=== PATIENT | female | born 1970 | race Caucasian/White ===

== ENCOUNTER 2021-04-14 08:57 | Day surgery (SDC) | payer BC ==
[2021-04-13 09:52] VITALS: BMI 47.4
[~2021-04-14 08:57] MED LIST: LACTATED RINGERS 1,000 ML IV SCH
[2021-04-14 09:36] VITALS: TEMP 96.8
[2021-04-14] MEDS ORDERED: LIDOCAINE 1% (10MG/ML) FOR IV START INTRADERMA ONE (09:52)
[2021-04-14] MEDS ORDERED: LIDOCAINE 1% INJ 10MG/ML (20 ML MDV) ONE (10:12)
[2021-04-14] MEDS ORDERED: PROPOFOL 10 MG/ML 20 ML VIAL IV ONE (10:12)
--- NOTE | 2021-04-14 10:16 | P.GSHP ---
History of Present Illness H&P Date: 04/14/21 Chief Complaint: Epigastric pain This a 50-year-old female who has complaints of epigastric pain. Patient describes the pain he feeling of a ball in her epigastric area. Past Medical History Past Medical History: Asthma, Hyperlipidemia, Osteoarthritis (OA), Thyroid Disorder Additional Past Medical History / Comment(s): "Burning sensation below sternum that radiates out, stomach feels like it's backed up and overfull". Hx Covid 03/22/21. Migraines. "Genetic Arrythmia, had work up, no concerns." History of Any Multi-Drug Resistant Organisms: None Reported Past Surgical History: Cholecystectomy, Tubal Ligation Past Anesthesia/Blood Transfusion Reactions: Previous Problems w/ Anesthesia Additional Past Anesthesia/Blood Transfusion Reaction / Comment(s): Slow to wake up. Past Psychological History: No Psychological Hx Reported Smoking Status: Former smoker Past Alcohol Use History: None Reported Additional Past Alcohol Use History / Comment(s): Quit smoking 16 yrs ago. Past Drug Use History: None Reported - Past Family History Father Family Medical History: Cancer, Pulmonary Embolus Mother Family Medical History: Cancer Medications and Allergies Home Medications Medication Instructions Recorded Confirmed Type Albuterol Inhaler [Ventolin Hfa 1 - 2 puff INHALATION DIRECTED 04/13/21 04/13/21 History Inhaler] PRN Gabapentin [Neurontin] 100 mg PO TID PRN 04/13/21 04/13/21 History Levothyroxine Sodium [Synthroid] 50 mcg PO QAM 04/13/21 04/13/21 History Pantoprazole [Protonix] 40 mg PO QAM 04/13/21 04/13/21 History Allergies Allergy/AdvReac Type Severity Reaction Status Date / Time Penicillins Allergy Dyspnea Verified 04/13/21 09:35 prednisone Allergy Rash/Hives Verified 04/13/21 09:36 Surgical - Exam Vital Signs Temp Pulse Resp BP Pulse Ox 96.8 F L 81 20 126/71 98 04/14/21 09:34 04/14/21 09:34 04/14/21 09:34 04/14/21 09:34 04/14/21 09:34 - General well developed, well nourished, no distress - Eyes PERRL - ENT normal pinna - Neck no masses - Respiratory normal expansion - Cardiovascular Rhythm: regular - Abdomen Abdomen: soft, non tender Assessment and Plan Assessment: Epigastric pain. We'll perform EGD to evaluate for possible gastritis.
--- NOTE | 2021-04-14 10:24 | P.OP ---
Date of Procedure: 04/14/21 Preoperative Diagnosis: Epigastric pain Postoperative Diagnosis: Mild antral gastritis Procedure(s) Performed: EGD Anesthesia: MAC Surgeon: Moody Guevara Pathology: other (Antrum) Condition: stable Disposition: PACU Description of Procedure: The patient's placed on the endoscopy table in the lateral position. She received IV sedation. The gastroscope placed oropharynx passed in the esophagus and stomach. Scope was placed through the pylorus. The first and second portion of the duodenum appeared normal. Scope summer back the antrum this. Mildly inflamed. Biopsies performed. The scope was then retroflexed and the remainder the stomach appeared normal. There was no significant hiatal hernia. The GE junction was at 40 cms. The distal esophagus appeared normal. The proximal esophagus appeared normal. Scope withdrawn for patient.
[2021-04-14 10:32] VITALS: RESP 16
[2021-04-14 10:57] VITALS: BP 120/73; PULSE 78
== END 2021-04-14 11:30 | disposition home or self-care (01) ==
LOC: ORWHC2ENDO 08:57
PROVIDERS: ATTEND Surgery
DX: K29.70 Gastritis, unspecified, without bleeding (principal); K44.9 Diaphragmatic hernia without obstruction or gangrene; J45.909 Unspecified asthma, uncomplicated; E78.5 Hyperlipidemia, unspecified; M19.90 Unspecified osteoarthritis, unspecified site; E07.9 Disorder of thyroid, unspecified; E66.01 Morbid (severe) obesity due to excess calories; Z68.42 Body mass index [BMI] 45.0-49.9, adult; G43.909 Migraine, unspecified, not intractable, without status migrainosus; Z90.49 Acquired absence of other specified parts of digestive tract; Z98.51 Tubal ligation status; Z87.891 Personal history of nicotine dependence; Z82.49 Family history of ischemic heart disease and other diseases of the circulatory system; Z80.9 Family history of malignant neoplasm, unspecified; Z79.890 Hormone replacement therapy; Z79.899 Other long term (current) drug therapy; Z88.0 Allergy status to penicillin; Z88.8 Allergy status to other drugs, medicaments and biological substances
CPT/HCPCS: 81025; 88305; 43239; J2001; J2704

== ENCOUNTER → 2021-05-09 | Outpatient (CLI) | payer BC ==
--- NOTE | 2021-05-09 22:03 | CT ---
"EXAMINATION TYPE: CT abdomen pelvis w con DATE OF EXAM: 05/09/2021 COMPARISON: No previous CT scan is available for comparison. HISTORY: Epigastric pain CT DLP: 2150.50 mGycm Automated exposure control for dose reduction was used. TECHNIQUE: Helical acquisition of images was performed from the lung bases through the pelvis. CONTRAST: Performed with Oral Contrast and with IV Contrast, patient injected with 100 mL of Isovue 300. FINDINGS: LUNG BASES: 2 mm nodule is seen at the posterior aspect of the right lung base (image 20, series 4), nonspecific. Further dedicated CT scan of the chest can be considered. LIVER/GB: Enlarged liver measuring 19.9 cm. Multiple variable sized hepatic focal lesions are identif ied. For example, a right hepatic lobe lateral lesion measures 3.8 x 5.5 cm. A central segment 8 lesi on measures 2.5 x 2.7 cm. A segment 4B lesion measures 3.3 x 4.2 cm. An inferior segment 5 lesion cecil sures 15 mm. They are suspicious for metastatic lesions. Previous cholecystectomy. Patent portal vein . PANCREAS: No significant abnormality is seen. SPLEEN: No significant abnormality is seen. ADRENALS: No significant abnormality is seen. KIDNEYS: No significant abnormality is seen. FREE AIR: No free air is visualized. RETROPERITONEAL ADENOPATHY: None visualized REPRODUCTIVE ORGANS: No gross uterine or adnexal mass yet suboptimally assessed. URINARY BLADDER: No significant abnormality is seen. PELVIC ADENOPATHY: None visualized. OSSEOUS STRUCTURES: Degenerative changes of the lower thoracic and L5-S1 level. No gross aggressive bone lesion. BOWEL: Unremarkable stomach, duodenum and small bowel. Significant wall thickening of the inferior a spect of the descending colon with obliteration of the colonic lumen extending for about 3.9 cm, high ly suspicious for colon cancer. Questionable tiny adjacent pericolic lymph nodes are noted. Other xiomara rt segments of mild nonspecific colonic wall thickening. No evidence of colonic obstruction. Normal a ppendix. OTHER: Unremarkable abdominal aorta and IVC. No sizable ascites. Small fat-containing umbilical herni a. IMPRESSION: Findings are highly suggestive of a colon cancer at the inferior aspect of the descending colon with multiple variable sized hepatic focal lesions, concerning for hepatic metastasis. Recommend correlati on with coloscopy results, oncology consultation and tissue diagnosis. Further PET scan assessment ca n be also considered. Other incidental findings as described above. A [place] level critical message alert has been initiated for Moody Guevara MD via the [employer] 3 60 | Critical Results System on 05/09/2021 10:00 PM. This message alert has been sent to Moody mtz MD via the preferences provided by the clinician for the receipt of Radiology Critical Findings. [facility] ID [id number]."
== END | disposition home or self-care (01) ==
LOC: RADCTMAIN 16:24
PROVIDERS: ATTEND Surgery
DX: R10.13 Epigastric pain (principal)
CPT/HCPCS: 74177; Q9967

== ENCOUNTER → 2021-05-11 | Outpatient (CLI) | payer BC ==
[2021-05-12 01:20] LABS: Basophils % (A) 1.5 %; Eosinophils # (A) 0.45 X 10*3/uL (0.04-0.35); Eosinophils % (A) 6.8 %; HCT 40.2 % (37.2-46.3); HGB 11.9 g/dL (12.0-15.0); Immature Grans, Automated 0.3 %; Lymphocytes # (A) 1.23 X 10*3/uL (0.90-5.00); Lymphocytes % (A) 18.5 %; MCH 25.1 pg (27.0-32.0); MCHC 29.6 g/dL (32.0-37.0); MCV 84.8 fL (80.0-97.0); Mean Platelet Volume 9.9 fL (9.5-12.2); Monocytes # (A) 0.44 X 10*3/uL (0.20-1.00); Monocytes % (A) 6.6 %; NRBC Per 100 WBC 0 /100 WBCS (0.0-0.0); Neutrophils # (A) 4.42 X 10*3/uL (1.80-7.70); Neutrophils % (A) 66.3 %; Platelet Count 436 X 10*3/uL (140-440); RBC 4.74 X 10*6/uL (4.10-5.20); RDW 17.8 % (11.5-14.5); WBC 6.66 X 10*3/uL (4.50-10.00)
== END | disposition home or self-care (01) ==
LOC: LABPAT 11:48
PROVIDERS: ATTEND Surgery
DX: Z01.818 Encounter for other preprocedural examination (principal); C18.9 Malignant neoplasm of colon, unspecified; R94.31 Abnormal electrocardiogram [ECG] [EKG]
CPT/HCPCS: 85025; 93005

== ENCOUNTER 2021-05-12 09:53 | Day surgery (SDC) | payer BC ==
[2021-05-11 10:22] VITALS: BMI 47.4
[2021-05-12 10:14] VITALS: TEMP 97.3
[2021-05-12] MEDS ORDERED: PROPOFOL 10 MG/ML 20 ML VIAL IV ONE (11:08)
--- NOTE | 2021-05-12 11:13 | P.GSHP ---
History of Present Illness H&P Date: 05/12/21 Chief Complaint: Abdominal pain, nausea This a 50-year-old female who's had complaints of abdominal pain. Patient also complaints of nausea vomiting. Her recent CAT scan suggestive of a right colon cancer. There is a segment of the colon which appears to complete obliteration of the lumen. Patient resents today for colonoscopy. Past Medical History Past Medical History: Asthma, Hyperlipidemia, Osteoarthritis (OA), Thyroid Disor grecia Additional Past Medical History / Comment(s): Hx Covid 03/22/21. Migraines. "Genetic Arrythmia, had work up, no concerns." History of Any Multi-Drug Resistant Organisms: None Reported Past Surgical History: Cholecystectomy, Tubal Ligation Additional Past Surgical History / Comment(s): EGD. HAVING COLONOSCOPY 05/12/21 Past Anesthesia/Blood Transfusion Reactions: Previous Problems w/ Anesthesia Additional Past Anesthesia/Blood Transfusion Reaction / Comment(s): Slow to wake up. Smoking Status: Former smoker - Past Family History Father Family Medical History: Cancer, Pulmonary Embolus Mother Family Medical History: Cancer Medications and Allergies Home Medications Medication Instructions Recorded Confirmed Type Albuterol Inhaler [Ventolin Hfa 1 - 2 puff INHALATION DIRECTED 04/13/21 05/12/21 History Inhaler] PRN Gabapentin [Neurontin] 100 mg PO TID PRN 04/13/21 05/11/21 History Levothyroxine Sodium [Synthroid] 50 mcg PO QAM 04/13/21 05/11/21 History Pantoprazole [Protonix] 40 mg PO QAM 04/13/21 05/11/21 History Allergies Allergy/AdvReac Type Severity Reaction Status Date / Time Penicillins Allergy Dyspnea Verified 05/12/21 10:11 prednisone Allergy Rash/Hives Verified 05/12/21 10:11 Surgical - Exam Vital Signs Temp Pulse Resp BP Pulse Ox 97.3 F L 90 17 164/96 98 05/12/21 10:13 05/12/21 10:13 05/12/21 10:13 05/12/21 10:13 05/12/21 10:13 - General well developed, well nourished, no distress - Eyes PERRL - ENT normal pinna - Neck no masses - Respiratory normal expansion - Cardiovascular Rhythm: regular - Abdomen Obese Abdomen: soft, non tender Assessment and Plan Assessment: History of abdominal pain NAUSEA. Patient most likely has near obstructing right colon cancer. Patient will undergo colonoscopy.
--- NOTE | 2021-05-12 11:32 | P.OP ---
Date of Procedure: 05/12/21 Preoperative Diagnosis: Colonic obstruction Postoperative Diagnosis: Left colon mass pathology Procedure(s) Performed: Colonoscopy Anesthesia: MAC Surgeon: Moody Guevara Pathology: other (Left colon mass) Condition: stable Disposition: PACU Description of Procedure: The patient's placed on the endoscopy table in the lateral position. She received IV sedation. Digital rectal exam was performed which revealed external hemorrhoids. The flexible colonoscope was then placed patient anus and passed throughout the colon. At approximately 60 cm siva there was a large colonic mass obstructing the lumen of the colon. The colonoscope could be advanced beyond this. It was near obstruction the colon. The scope was placed on the way into the cecum. The ileocecal valve was visually. The cecum, ascending and transverse colon appeared normal. In the descending colon at approximately the 45 cm siva the mass seen again. This was biopsied with a cold forcep. The area was tattooed. The mass created almost near occlusion of the colon. Scope was then withdrawn the remainder the descending colon and sigmoid colon appeared normal. The rectum was normal. Scope was withdrawn through the anus and external hemorrhoids were noted.
[2021-05-12 11:36] VITALS: RESP 16
[2021-05-12 11:52] VITALS: BP 148/74; PULSE 81
== END 2021-05-12 12:20 | disposition home or self-care (01) ==
LOC: ORWHC2ENDO 09:53
PROVIDERS: ATTEND Surgery
DX: D12.4 Benign neoplasm of descending colon (principal); K64.4 Residual hemorrhoidal skin tags; J45.909 Unspecified asthma, uncomplicated; E66.01 Morbid (severe) obesity due to excess calories; Z68.42 Body mass index [BMI] 45.0-49.9, adult; K21.9 Gastro-esophageal reflux disease without esophagitis; E78.5 Hyperlipidemia, unspecified; M19.90 Unspecified osteoarthritis, unspecified site; E07.9 Disorder of thyroid, unspecified; Z86.16 Personal history of COVID-19; G43.909 Migraine, unspecified, not intractable, without status migrainosus; Z90.49 Acquired absence of other specified parts of digestive tract; Z98.51 Tubal ligation status; Z87.891 Personal history of nicotine dependence; Z80.9 Family history of malignant neoplasm, unspecified; Z82.49 Family history of ischemic heart disease and other diseases of the circulatory system; Z79.890 Hormone replacement therapy; Z79.899 Other long term (current) drug therapy; Z88.0 Allergy status to penicillin; Z88.8 Allergy status to other drugs, medicaments and biological substances
CPT/HCPCS: 81025; 88305; 45380; 45381; J2704; 44404

== ENCOUNTER 2021-05-13 06:03 | Inpatient (IN) | payer BC ==
[~2021-05-13 06:03] MED LIST changes: +ACETAMINOPHEN TAB 500 MG TAB PO PRN; +CLINDAMYCIN 900 MG in DEXTROSE 5% IN WATER 50 ML IVPB PRN; +GENTAMICIN 460 MG in SODIUM CHLORIDE 0.9% 100 ML IVPB PRN; +HEPARIN SODIUM,PORCINE/PF 5,000 UNIT/0.5 ML SYRINGE SQ PRN; -LACTATED RINGERS 1,000 ML IV SCH
[2021-05-13] MEDS ORDERED: LIDOCAINE 1% (10MG/ML) FOR IV START INTRADERMA ONE (07:00)
[2021-05-13] MEDS ORDERED: LACTATED RINGERS 1,000 ML IV ONE ×4 (07:02→09:56)
[2021-05-13] MEDS ORDERED: ONDANSETRON 4 MG/2 ML VIAL ONE (07:15)
[2021-05-13] MEDS ORDERED: ONDANSETRON 4 MG/2 ML VIAL IVP ONE (07:18)
[2021-05-13] MEDS ORDERED: MIDAZOLAM 2 MG/2 ML VIAL IVP ONE (07:31)
[2021-05-13] MEDS ORDERED: fentaNYL (PF) 50 MCG/ML 2 ML AMP IVP ONE (07:31)
--- NOTE | 2021-05-13 08:10 | P.GSHP ---
History of Present Illness H&P Date: 05/13/21 Chief Complaint: Left colon mass Is a 50-year-old female who presents today for left colectomy. Patient has had complaints of abdominal pain and cramps nausea. Her CAT scan was suggestive of the right colon cancer. Colonoscopy for shows a near obstructing left colon mass. She presents today for left colectomy. Patient aware the risk of colostomy. Patient is morbidly obese. BMI is 46% aware of risk of consultation related to morbid obesity including wound infection, DVT and PE Past Medical History Past Medical History: Asthma, Hyperlipidemia, Osteoarthritis (OA), Thyroid Disorder Additional Past Medical History / Comment(s): Hx Covid 03/22/21. Migraines. "Genetic Arrythmia, had work up, no concerns." History of Any Multi-Drug Resistant Organisms: None Reported Past Surgical History: Cholecystectomy, Tubal Ligation Additional Past Surgical History / Comment(s): EGD. HAVING COLONOSCOPY 05/12/21 Past Anesthesia/Blood Transfusion Reactions: Previous Problems w/ Anesthesia Additional Past Anesthesia/Blood Transfusion Reaction / Comment(s): Slow to wake up. Smoking Status: Former smoker - Past Family History Father Family Medical History: Cancer, Pulmonary Embolus Mother Family Medical History: Cancer Medications and Allergies Home Medications Medication Instructions Recorded Confirmed Type Albuterol Inhaler [Ventolin Hfa 1 - 2 puff INHALATION DIRECTED 04/13/21 05/13/21 History Inhaler] PRN Gabapentin [Neurontin] 100 mg PO TID PRN 04/13/21 05/13/21 History Levothyroxine Sodium [Synthroid] 50 mcg PO QAM 04/13/21 05/13/21 History Pantoprazole [Protonix] 40 mg PO QAM 04/13/21 05/13/21 History Allergies Allergy/AdvReac Type Severity Reaction Status Date / Time Penicillins Allergy Dyspnea Verified 05/13/21 06:27 prednisone Allergy Rash/Hives Verified 05/13/21 06:27 Surgical - Exam Vital Signs Temp Pulse Resp BP Pulse Ox 98.6 F 92 16 124/72 97 05/13/21 06:36 05/13/21 06:36 05/13/21 06:36 05/13/21 06:36 05/13/21 06:36 - General well developed, well nourished, no distress - Eyes PERRL - ENT normal pinna, normal nares - Neck no masses - Respiratory normal expansion - Cardiovascular Rhythm: regular - Abdomen Morbidly obese, abdomen is distended Abdomen: soft, non tender Assessment and Plan Assessment: Left colon mass, near obstructing. Patient will undergo left colectomy today.
[2021-05-13] MEDS ORDERED: MIDAZOLAM 2 MG/2 ML VIAL ONE (08:24)
[2021-05-13] MEDS ORDERED: fentaNYL (PF) 50 MCG/ML 2 ML AMP ONE (08:24)
[2021-05-13] MEDS ORDERED: ROCURONIUM 10 MG/ML (5 ML VIAL) IV ONE (08:24)
[2021-05-13] MEDS ORDERED: LIDOCAINE 1% INJ 10MG/ML (20 ML MDV) ONE (08:24)
[2021-05-13] MEDS ORDERED: SUCCINYLCHOLINE CHLORIDE VIAL 200 MG/10 ML VIAL IV ONE (08:24)
[2021-05-13] MEDS ORDERED: PROPOFOL 10 MG/ML 20 ML VIAL IV ONE (08:24)
[2021-05-13] MEDS ORDERED: MORPHINE SULFATE 2 MG/ML SYRINGE IVP PRN (08:27)
[2021-05-13] MEDS ORDERED: diphenhydrAMINE 50 MG/ML 1 ML VIAL IVP PRN (08:27)
[2021-05-13] MEDS ORDERED: ONDANSETRON 4 MG/2 ML VIAL IVP PRN ×2 (08:27→10:11)
[2021-05-13] MEDS ORDERED: NALOXONE 0.4 MG/ML 1 ML VIAL IV PRN (08:27)
[2021-05-13] MEDS: ROPIVACAINE 250 MG, HYDROMORPHONE (PF) 5 MG in SODIUM CHLORIDE 0.9% 200 ML EPIDURAL PRN ×3 (10:09→12:07)
--- NOTE | 2021-05-13 10:10 | P.OP ---
Date of Procedure: 05/13/21 Preoperative Diagnosis: Left colon obstructing mass Postoperative Diagnosis: Defer to pathology Left colon mass Hepatic mass Procedure(s) Performed: Left colectomy Takedown splenic flexure Anesthesia: ALANA Surgeon: Moody Guevara Estimated Blood Loss (ml): 100 Pathology: other (Left colon) Condition: stable Disposition: PACU Indications for Procedure: This 50-year-old female who had obstructive symptoms from a left colon mass. Patient resents today for left colectomy Description of Procedure: The patient's placed in the operative table in supine position. She received general endotracheal tube anesthesia. Her abdomen was prepped and draped usual fashion. The patient morbidly obese. Her BMI is 46. A midline skin incision was made in the left cautery the subcutaneous tissue divided. The fascia was then opened in the midline. The Bookwalter tract with wound. The area of the mass had been tattooed. This was seen in the distal left colon. The liver was palpated. There was a nodule which was palpated on the liver in the right lobe. It was not visualized due to the patient's obesity and the length of the skin incision. At this point the left colon was mobilized. The white line of Toldt was divided. The splenic flexure was taken down with accommodation of sharp and blunt dissection with cautery. The colon was transected distal to the mass. With the VERONIKA stapler. The distal transverse colon was then transected the VERONIKA stapler. Using the Enseal device the mesentery the bowel was divided. The specimen was then opened and the mass had the appearance of a colon cancer. It was quite large occupying prostate two thirds of the lumen of the colon. At this point a [id number] functional end-to-end staple anastomosis was created between the distal transverse colon and the distal colon. A 3-0 GI silk sutures a crotch stitch. The VERONIKA and TA staplers were used to make the anastomosis. The abdomen was irrigated there is no bleeding seen. The fascia was closed with looped #1 PDS suture. Due to the patient's obesity several Telfa paige were placed into the skin incision as a skin incision was closed with kaleb. Patient tolerated procedure well was sent to recovery room in stable condition.
[2021-05-13] MEDS ORDERED: BENZOCAINE/MENTHOL LOZENG 1 EACH LOZENGE MUCOUS MEM PRN (10:11)
--- NOTE | 2021-05-13 10:14 | P.ANPRN ---
Procedure Note - Anesthesia - Epidural/Spinal Epidural Continuous Time Out Performed: Yes Date of Procedure: 05/13/21 Procedure Start Time: 07:30 Procedure Stop Time: 07:42 Location of Patient: PreOp Indication: Acute Post-Operative Pain, Requested by Surgeon (carroll) Sedation Type: Sedate with meaningful contact maintained Preparation: Sterile Dressing Number of Attempts: 2 Position: Sitting Catheter Depth at Skin (cm): 15 Catheter: Indwelling Needle Guage: 18 Injectate: Test Dose Lidocaine1.5% w/1:200,000 epi (4cc) Narrative: L1-2 epidural. Placed in 2 attempts. Test dose negative NO Heme. No Paresthesias Blood Aspirated: No Pain Paresthesia on Injection Noted: No Events: Uneventful and Well Tolerated
[2021-05-13] MEDS: D5-0.45% NACL WITH KCL 20MEQ/L 1,000 ML IV SCH ×2 (13:42→19:48)
[2021-05-13 16:12] LABS: African American GFR (CKD) >90 (>60 ml/min/1.73 sqM); Anion Gap 6 mmol/L; Blood Urea Nitrogen 8 mg/dL (7-17); Calcium 8.2 mg/dL (8.4-10.2); Carbon Dioxide 22 mmol/L (22-30); Chloride 106 mmol/L (98-107); Glucose 125 mg/dL (74-99); Non-African American GFR(CKD) >90 (>60 ml/min/1.73 sqM); Potassium 4.1 mmol/L (3.5-5.1); Sodium 134 mmol/L (137-145)
[2021-05-13] MEDS: HEPARIN SODIUM,PORCINE/PF 5,000 UNIT/0.5 ML SYRINGE SQ SCH ×2 (16:15→23:32)
[2021-05-13 17:30] LABS: Anisocytosis Slight; Basophils % (A) 0 %; Eosinophils # (A) 0.2 k/uL (0-0.7); Eosinophils % (A) 1 %; HCT 33.5 % (34.0-46.0); HGB 10.8 gm/dL (11.4-16.0); Hypochromasia Slight; Lymphocytes # (A) 0.9 k/uL (1.0-4.8); Lymphocytes % (A) 8 %; MCH 26.9 pg (25.0-35.0); MCHC 32.3 g/dL (31.0-37.0); MCV 83.3 fL (80.0-100.0); Monocytes # (A) 0.4 k/uL (0-1.0); Monocytes % (A) 4 %; Neutrophils # (A) 9.3 k/uL (1.3-7.7); Neutrophils % (A) 86 %; Platelet Count 365 k/uL (150-450); RBC 4.03 m/uL (3.80-5.40); RDW 16.4 % (11.5-15.5); WBC 10.8 k/uL (3.8-10.6)
[2021-05-13] MEDS ORDERED: LORATADINE 10 MG TAB PO STA (18:31)
[2021-05-13] MEDS: ALVIMOPAN 12 MG CAPSULE PO SCH (19:45)
[2021-05-13] MEDS: FAMOTIDINE 20 MG/2 ML VIAL IV SCH (19:47)
[2021-05-14] MEDS: D5-0.45% NACL WITH KCL 20MEQ/L 1,000 ML IV SCH ×3 (03:37→18:07)
[2021-05-14] MEDS: HEPARIN SODIUM,PORCINE/PF 5,000 UNIT/0.5 ML SYRINGE SQ SCH ×3 (07:12→23:31)
[2021-05-14] MEDS: ALVIMOPAN 12 MG CAPSULE PO SCH ×2 (07:13→20:05)
[2021-05-14] MEDS: FAMOTIDINE 20 MG/2 ML VIAL IV SCH ×2 (08:16→20:05)
--- NOTE | 2021-05-14 12:10 | P.PN ---
Subjective Progress Note Date: 05/14/21 Principal diagnosis: Colon mass Patient doing fairly well. She's been out of bed already. T-max 99.8. No labs from this morning. Epidural controlling pain well. Objective - Vital Signs Vital signs: Vital Signs Temp 99.8 F H 05/14/21 07:47 Pulse 89 05/14/21 07:47 Resp 18 05/14/21 07:47 BP 95/64 05/14/21 07:47 Pulse Ox 93 L 05/14/21 08:13 Intake & Output 05/13/21 05/14/21 05/14/21 18:59 06:59 18:59 Intake Total 3695.067 Output Total 410 300 Balance 3285.067 -300 Weight 133.1 kg Intake: IV 3671.5 Intake, IV Titration 23.567 Amount Ropivacaine 250 mg 23.567 Hydromorphone (Pf) 5 mg In Sodium Chloride 0.9% 200 ml @ Per Protocol EPIDURAL .Q0M PRN Rx#: [id number] Output: Urine 310 300 Estimated Blood Loss 100 - Exam Abdomen: Soft, mild distention, mild tenderness, dressing with serosanguineous drainage from the wick sites - Labs CBC & Chem 7: 05/13/21 16:15 05/13/21 15:12 Labs: Abnormal Lab Results - Last 24 Hours (Table) 05/13/21 05/13/21 Range/Units 15:12 16:15 WBC 10.8 H (3.8-10.6) k/uL Hgb 10.8 L (11.4-16.0) gm/dL Hct 33.5 L (34.0-46.0) % RDW 16.4 H (11.5-15.5) % Neutrophils # 9.3 H (1.3-7.7) k/uL Lymphocytes # 0.9 L (1.0-4.8) k/uL Sodium 134 L (137-145) mmol/L Glucose 125 H (74-99) mg/dL Calcium 8.2 L (8.4-10.2) mg/dL Assessment and Plan (1) Colonic mass Narrative/Plan: Patient doing well after recent left colectomy yesterday. Keep epidural and Jeffrey catheter in place. Begin changing outer dressings today and weak dressings tomorrow. Continue clear liquids for now. Crease activity. Current Visit: Yes Status: Acute Code(s): K63.89 - OTHER SPECIFIED DISEASES OF INTESTINE SNOMED Code(s): 714160754
[2021-05-14] MEDS ORDERED: GABAPENTIN 100 MG CAP PO PRN (12:31)
[2021-05-14] MEDS ORDERED: diphenhydrAMINE 50 MG/ML 1 ML VIAL IVP PRN (12:34)
[2021-05-14] MEDS: PANTOPRAZOLE 40 MG/10 ML VIAL IVP SCH (13:16)
--- NOTE | 2021-05-14 15:22 | CONS ---
CONSULTATION DATE OF SERVICE: 05/14/2021. REASON FOR CONSULTATION: Advice regarding asthma, hyperlipidemia, other medical issues requested by surgery. HISTORY OF PRESENT ILLNESS: This 50-year-old woman with a past medical history of asthma, hyperlipidemia, DJD, being followed by Dr. Kwon in the outpatient setting, was admitted after left colectomy and takedown of splenic flexure for left colon mass and hepatic mass. The patient is complaining of itching at this time. Patient is on epidural at this time. No fever. No cough. No shortness of breath. PAST MEDICAL HISTORY: History reviewed, include asthma, hyperlipidemia. MEDICATIONS: Home medications are again reviewed and include Protonix, Synthroid. Doses and other medications reviewed. ALLERGIES: PENICILLIN. FAMILY HISTORY: History of pulmonary embolism. SOCIAL HISTORY: Previous history of smoking. REVIEW OF SYSTEMS: A 14-point review is negative except mentioned earlier. PHYSICAL EXAM: Alert and oriented x3. Pulse is 89, blood pressure 95/60, respiration 18, pulse ox 90 percent on room air. HEENT: Conjunctivae normal. Oral mucosa moist. NECK is no jugular venous distention. CARDIOVASCULAR: S1, S2 muffled. RESPIRATION: Breath sounds diminished in the bases. No rhonchi. No crackles. ABDOMEN: Soft, obese, status post surgery. LEGS are no edema, no swelling. NERVOUS SYSTEM: No focal deficits. SKIN: No ulcer, no rash and no bleeding. JOINTS: No active deforming arthropathy. LABS: WBC 7.3. Other labs are noted. ASSESSMENT: 1. Status post left colectomy and takedown of splenic fracture for left colonic mass. 2. Asthma. 3. Hyperlipidemia. 4. Hypothyroidism. 5. History of COVID. 6. Family history of deep vein thrombosis. RECOMMENDATIONS AND DISCUSSION: In this 50-year-old woman presented after surgery, at this time I recommend to continue the current management and symptomatic treatment. I would recommend DVT prophylaxis in the form of Lovenox after talking with surgery. Otherwise, proton pump inhibitors, Benadryl for itching. Further recommendations to follow. MMODL / IJN: [id number] /
[2021-05-14] MEDS: ALBUTEROL NEBULIZED 2.5 MG/3 ML INHALATION SCH ×2 (17:02→21:31)
--- NOTE | 2021-05-14 19:55 | P.PN ---
Progress Note - Text Progress Note Date: 05/14/21 Postoperative day #1 status post left colectomy epidural catheter placed for postoperative analgesia, patient doing well epidural site okay, patient currently on combination of epidural infusion solution of Ropivacaine 0.0625% and Dilaudid 20 g per mL the infusion rate at 5 ml per hour , patient had no motor deficit epidural site okay , vital signs stable ,VAS 3 /10 , Assessment and plan= post operative day #1 patient doing well ,pain well controlled , there is no anesthesia related complications
[2021-05-14] MEDS: ROPIVACAINE 250 MG, HYDROMORPHONE (PF) 5 MG in SODIUM CHLORIDE 0.9% 200 ML EPIDURAL PRN (23:09)
[2021-05-15] MEDS: METOCLOPRAMIDE 5 MG/ML 2 ML VIAL IVP PRN ×3 (00:52→22:23)
[2021-05-15] MEDS: D5-0.45% NACL WITH KCL 20MEQ/L 1,000 ML IV SCH ×3 (03:18→22:22)
[2021-05-15] MEDS: LEVOTHYROXINE 50 MCG TAB PO SCH (05:43)
[2021-05-15] MEDS: ALVIMOPAN 12 MG CAPSULE PO SCH ×2 (07:19→20:06)
[2021-05-15] MEDS: HEPARIN SODIUM,PORCINE/PF 5,000 UNIT/0.5 ML SYRINGE SQ SCH ×3 (07:19→23:19)
[2021-05-15] MEDS: ALBUTEROL NEBULIZED 2.5 MG/3 ML INHALATION SCH ×4 (07:41→21:00)
[2021-05-15] MEDS: PANTOPRAZOLE 40 MG/10 ML VIAL IVP SCH ×2 (08:03→20:07)
[2021-05-15] MEDS: FAMOTIDINE 20 MG/2 ML VIAL IV SCH ×2 (08:03→20:07)
[2021-05-15 09:26] LABS: Basophils # (A) 0.05 X 10*3/uL (0.00-0.10); Basophils % (A) 0.6 %; Eosinophils # (A) 0.07 X 10*3/uL (0.04-0.35); Eosinophils % (A) 0.8 %; HCT 33.3 % (37.2-46.3); HGB 9.9 g/dL (12.0-15.0); Immature Grans, Automated 0.4 %; Lymphocytes # (A) 0.56 X 10*3/uL (0.90-5.00); Lymphocytes % (A) 6.2 %; MCH 25.2 pg (27.0-32.0); MCHC 29.7 g/dL (32.0-37.0); MCV 84.7 fL (80.0-97.0); Monocytes % (A) 5.5 %; NRBC Per 100 WBC 0 /100 WBCS (0.0-0.0); Neutrophils # (A) 7.83 X 10*3/uL (1.80-7.70); Neutrophils % (A) 86.5 %; Platelet Count 379 X 10*3/uL (140-440); RBC 3.93 X 10*6/uL (4.10-5.20); RDW 17.4 % (11.5-14.5); WBC 9.05 X 10*3/uL (4.50-10.00)
[2021-05-15 09:49] LABS: African American GFR (CKD) 117.9 (60.0-200.0); Albumin 3.3 g/dL (3.8-4.9); Albumin/Globulin Ratio 1.5 (1.60-3.17); Anion Gap 9.7 mmol/L (10.00-18.00); BUN/Creat Ratio 4.14 Ratio (12.00-20.00); Blood Urea Nitrogen 2.9 mg/dL (9.0-27.0); Calcium 8.7 mg/dL (8.7-10.3); Carbon Dioxide 21.3 mmol/L (20.0-27.5); Globulin 2.2 g/dL (1.6-3.3); Non-African American GFR(CKD) 101.7 (60.0-200.0); Potassium 4.6 mmol/L (3.5-5.5); Total Bilirubin 0.2 mg/dL (0.30-1.20); Total Protein 5.5 g/dL (6.2-8.2)
--- NOTE | 2021-05-15 11:54 | P.PN ---
Subjective Progress Note Date: 05/15/21 Principal diagnosis: Colon mass Patient had a low-grade fever last night 99.6. Her white blood cell count is normal at 9.5, hemoglobin 9.9. Patient did have 4 episodes of vomiting since midnight. She says she has some abdominal discomfort that builds up until she vomits and then feels better. No flatus or bowel movement. Not having significant pain. Objective - Vital Signs Vital signs: Vital Signs Temp 99.2 F 05/15/21 08:00 Pulse 90 05/15/21 08:00 Resp 16 05/15/21 08:00 BP 117/66 05/15/21 08:00 Pulse Ox 90 L 05/15/21 08:00 Intake & Output 05/14/21 05/15/21 05/15/21 17:59 06:59 18:59 Intake Total Output Total Balance Intake: Intake, IV Titration Amount D5-0.45% NaCl with KCl 20Meq/l 1,000 ml @ 125 mls/hr IV .Q8H CATHERINE Rx#: [id number] Ropivacaine 250 mg Hydromorphone (Pf) 5 mg In Sodium Chloride 0.9% 200 ml @ Per Protocol EPIDURAL .Q0M PRN Rx#: [id number] Oral Output: Urine Emesis Other: Voiding Method Indwelling Catheter - Exam Abdomen: Soft, mild distention, mild tenderness, incision clean and dry - Labs CBC & Chem 7: 05/15/21 03:51 05/15/21 03:58 Labs: Abnormal Lab Results - Last 24 Hours (Table) 05/15/21 05/15/21 Range/Units 03:51 03:58 RBC 3.93 L (4.10-5.20) X 10*6/uL Hgb 9.9 L (12.0-15.0) g/dL Hct 33.3 L (37.2-46.3) % MCH 25.2 L (27.0-32.0) pg MCHC 29.7 L (32.0-37.0) g/dL RDW 17.4 H (11.5-14.5) % Neutrophils # 7.83 H (1.80-7.70) X 10*3/uL Lymphocytes # 0.56 L (0.90-5.00) X 10*3/uL Sodium 133 L (135-145) mmol/L Anion Gap 9.70 L (10.00-18.00) mmol/L BUN 2.9 L (9.0-27.0) mg/dL BUN/Creatinine Ratio 4.14 L (12.00-20.00) Ratio Glucose 133 H (70-110) mg/dL Total Bilirubin 0.20 L (0.30-1.20) mg/dL Total Protein 5.5 L (6.2-8.2) g/dL Albumin 3.3 L (3.8-4.9) g/dL Albumin/Globulin Ratio 1.50 L (1.60-3.17) g/dL Assessment and Plan (1) Colonic mass Narrative/Plan: Patient with a dynamic ileus after recent left colectomy. Discussed possible option of nasogastric tube placement. She would like to avoid that if possible. Encouraged increasing activity. Reglan added every 6. Will make nothing by mouth at this time. Ice chips only. Current Visit: Yes Status: Acute Code(s): K63.89 - OTHER SPECIFIED DISEASES OF INTESTINE SNOMED Code(s): 077960545
--- NOTE | 2021-05-15 16:33 | P.PN ---
Progress Note - Text Progress Note Date: 05/15/21 Postoperative day #2 status post left colectomy epidural catheter placed for postoperative analgesia, patient doing well epidural site okay, patient currently on combination of epidural infusion solution of Ropivacaine 0.0625% and Dilaudid 20 g per mL the infusion rate at 5 ml per hour , patient had no motor deficit epidural site okay , vital signs stable ,VAS 3 /10 , Assessment and plan= post operative day #2 patient doing well ,pain well controlled , there is no anesthesia related complications
[2021-05-15 18:22] LABS: Appearance,Urine Cloudy (Clear); Bacteria,Urine Rare /hpf; Bilirubin,Urine Negative (Negative); Blood,Urine Trace (Negative); Color,Urine Yellow; Glucose,Urine (UA) Negative (Negative); Hyaline Casts,Urine 3 /lpf (0-2); Ketones,Urine Negative (Negative); Leukocyte Esterase,Urine Negative (Negative); Mucus,Urine Many /hpf; Nitrite,Urine Negative (Negative); PH, Urine 5.5 (5.0-8.0); Protein,Urine 1+ (Negative); RBC,Urine 11 /hpf (0-5); Specific Gravity,Urine 1.023 (1.001-1.035); Urobilinogen,Urine <2.0 mg/dL (<2.0); WBC,Urine 6 /hpf (0-5)
--- NOTE | 2021-05-15 18:44 | PN ---
PROGRESS NOTE DATE OF SERVICE: 05/15/2021 This 50-year-old woman who was admitted after left colectomy complaining of abdominal pain postoperatively. No chest pain. No palpitations. No fever. PHYSICAL EXAMINATION: Pulse is 88, blood pressure 135/83, respirations 17. Chest: Clear to auscultation. Cardiovascular: S1, S2. Abdomen: Soft, status post surgery. Bowel sounds diminished. LABS: WBC 9.0. Other labs are reviewed. ASSESSMENT: 1. Status post left colectomy and takedown of splenic flexure for left colonic mass. 2. Asthma. 3. Hyperlipidemia. 4. Hypothyroidism. 5. History of COVID. 6. Family history of deep vein thrombosis. RECOMMENDATIONS AND DISCUSSION: Recommend to continue current medications, management and symptomatic treatment. Continue DVT prophylaxis. The patient is on heparin. Lovenox cannot be given because of the epidural. Cut down the IV fluids. Dr. Kwon will follow. [id number] / TAYN: [id number] /
[2021-05-15] MEDS ORDERED: TRIMETHOBENZAMIDE 100 MG/ML 2 ML VIAL IM PRN (19:17)
[2021-05-16] MEDS: D5-0.45% NACL WITH KCL 20MEQ/L 1,000 ML IV SCH ×2 (02:27→18:38)
[2021-05-16] MEDS: LEVOTHYROXINE 50 MCG TAB PO SCH (05:35)
--- NOTE | 2021-05-16 06:53 | P.PN ---
Progress Note - Text Progress Note Date: 05/16/21 Postoperative day #3 status post left colectomy epidural catheter placed for postoperative analgesia, patient doing well epidural site okay, patient currently on combination of epidural infusion solution of Ropivacaine 0.0625% and Dilaudid 20 g per mL the infusion rate at 5 ml per hour , patient had no motor deficit epidural site okay , vital signs stable ,VAS 3 /10 , Assessment and plan= post operative day #3 patient doing well ,pain well controlled , there is no anesthesia related complications
[2021-05-16] MEDS: ALVIMOPAN 12 MG CAPSULE PO SCH ×2 (07:10→20:34)
[2021-05-16] MEDS: FAMOTIDINE 20 MG/2 ML VIAL IV SCH ×2 (07:10→20:34)
[2021-05-16] MEDS: HEPARIN SODIUM,PORCINE/PF 5,000 UNIT/0.5 ML SYRINGE SQ SCH ×2 (07:10→16:39)
[2021-05-16] MEDS: PANTOPRAZOLE 40 MG/10 ML VIAL IVP SCH ×2 (07:10→20:34)
[2021-05-16] MEDS: METOCLOPRAMIDE 5 MG/ML 2 ML VIAL IVP PRN ×3 (07:11→20:34)
[2021-05-16] MEDS: ALBUTEROL NEBULIZED 2.5 MG/3 ML INHALATION SCH ×4 (07:22→20:43)
[2021-05-16 09:45] LABS: Basophils # (A) 0.06 X 10*3/uL (0.00-0.10); Basophils % (A) 0.7 %; Eosinophils % (A) 3.5 %; HCT 32.7 % (37.2-46.3); HGB 9.8 g/dL (12.0-15.0); Immature Grans, Automated 0.5 %; Lymphocytes # (A) 0.83 X 10*3/uL (0.90-5.00); Lymphocytes % (A) 9.8 %; MCH 25.3 pg (27.0-32.0); MCV 84.3 fL (80.0-97.0); Mean Platelet Volume 9.8 fL (9.5-12.2); Monocytes # (A) 0.66 X 10*3/uL (0.20-1.00); Monocytes % (A) 7.8 %; NRBC Per 100 WBC 0 /100 WBCS (0.0-0.0); Neutrophils # (A) 6.59 X 10*3/uL (1.80-7.70); Neutrophils % (A) 77.7 %; Platelet Count 402 X 10*3/uL (140-440); RBC 3.88 X 10*6/uL (4.10-5.20); RDW 17.3 % (11.5-14.5); WBC 8.48 X 10*3/uL (4.50-10.00)
[2021-05-16 09:50] LABS: African American GFR (CKD) 119.3 (60.0-200.0); Anion Gap 7.9 mmol/L (10.00-18.00); BUN/Creat Ratio 4.51 Ratio (12.00-20.00); Blood Urea Nitrogen 3.1 mg/dL (9.0-27.0); Calcium 8.5 mg/dL (8.7-10.3); Carbon Dioxide 24.6 mmol/L (20.0-27.5); Non-African American GFR(CKD) 102.9 (60.0-200.0); Potassium 4.6 mmol/L (3.5-5.5)
--- NOTE | 2021-05-16 10:15 | CDI ---
Documentation Clarification Form Date: 05/16/2021 09:58:25 AM From: Guillermina FordMYLENE, CCDS Admit Date: 05/13/2021 06:03:00 AM Patient Name: Chantell Rice Visit Number: [id number] Discharge Date: ATTENTION: The Clinical Documentation Specialists (CDI) and [facility] Coding Staff appreciate your assistance in clarifying documentation. Please respond to the clarification below the line at the bottom and electronically sign. The CDI & [facility] Coding staff will review the response and follow-up if needed. Please note: Queries are made part of the Legal Health Record. If you have any questions, please contact the author of this message via ITS. Dr. Moody Guevara and/or Dr. Matthieu Arechiga: A dynamic Ileus after recent left colectomy is documented in the 05/15 Surgery Progress Note. Additional clarification is requested regarding the relationship, if any, that exists between the diagnosis and the procedure. Patients Admitting Diagnosis: Left Colon Mass, Hepatic Mass Post-Operative Diagnosis: Same Procedure performed: Left Colectomy, Takedown Splenic Flexure History/Risk Factors: Morbidly Obese, BMI 46.0, Asthma, Hyperlipidemia, Osteoarthritis, Hypothyroid, COVID 06/2020, Former Smoker. Clinical Indicators Presented 05/13 for an elective Left Colectomy for previously diagnosed Left Colon Mass, Abdominal Pain, Cramps & Nausea. Per the 05/15 Surgery Progress Note: Patient had a low-grade fever last night 99.6. WBC normal at 9.5, Hgb 9.9. patient had four episodes of vomiting after midnight, some abdominal discomfort. No Imaging to date postoperatively. 05/15 LAB: Na 133, Anion Gap 9.70, BUN 2.9, Glucose 133, total Bilirubin 0.20, Total Protein 5.5, Albumin 3.3. 05/15 UA: Cloudy, 1+ Protein, Trace Blood, RBC 11, WBC 6, Hyaline Casts 3. Treatment: Surgery on 05/13, IV Clindamycin 112 mls/hr x1 pre-op, IV Gentamicin 111.5 mls/hr x1 preop, Heparin sq 5,000 unit preop, IV Lactated Ringers, IV Zofran 4 mg x1, IV Morphine 2 mg q2Hr/prn, IV Reglan 10 mg q6Hr/prn, IV Kcl 75 mls/hr q13Hr. 05/14: IV Protonix 40 mg Daily, INH Ventolin 2.5 mg QID. 05/15: IM Tagan 200 mg q6Hr/prn.: What relationship, if any, exists between the diagnosis of Ileus and the procedure: [ ] Ileus is a complication of surgical procedure [XX] Ileus is an expected outcome of the surgical procedure [ ] Ileus is related to patients co-morbid condition(s), please specify condition(s): & is not a complication of the procedure [ ] Other, please specify: [ ] Unable to determine (Template Last Revised: May 2020) MTDD
--- NOTE | 2021-05-16 11:14 | P.PN ---
<Alesia Fu - Last Filed: 05/16/21 11:09> Subjective Progress Note Date: 05/16/21 CHIEF COMPLAINT: left colon obstructing mass HISTORY OF PRESENT ILLNESS: Patient is status post left colectomy and takedown of splenic flexure. Postop day #3. She currently has epidural in place. Reports that her pain is controlled. She did have vomiting over the weekend and Reglan was started for a postoperative ileus. She had one episode of vomiting last night but since the Reglan has started no further vomiting. Denies any flatus or bowel movement. Afebrile. WBC 8.48 Hgb 9.8 platelets 402 sodium 134 creatinine 0.7 PHYSICAL EXAM: VITAL SIGNS: Reviewed. GENERAL: Well-developed in no acute distress. HEENT: No sclera icterus. Extraocular movements grossly intact. Moist buccal mucosa. Head is atraumatic, normocephalic. ABDOMEN: Soft. Mildly distended. Incision sites clean dry and intact. Abdominal binder in place NEUROLOGIC: Alert and oriented. Cranial nerves II through XII grossly intact. ASSESSMENT: 1. Left colon mass, hepatic mass status post left colectomy and takedown of splenic flexure 2. Postoperative ileus PLAN: -Keep patient nothing by mouth -Encouraged patient to increase activity level -Encouraged patient to use incentive spirometer -Currently has epidural in place for pain management -Continue Reglan -GI prophylaxis Pepcid and DVT prophylaxis subcu heparin Physician Mill [employer] note has been reviewed by physician. Signing provider agrees with the documented findings, assessment, and plan of care. Objective - Vital Signs Vital signs: Vital Signs Temp 97.9 F 05/16/21 07:01 Pulse 77 05/16/21 08:32 Resp 17 05/16/21 07:01 BP 107/70 05/16/21 07:01 Pulse Ox 96 05/16/21 07:01 Intake & Output 05/15/21 05/16/21 05/16/21 18:59 06:59 18:59 Output Total 0 300 Balance 0 -300 Output: Urine 0 200 Emesis 100 Other: Voiding Method Indwelling Catheter Indwelling Catheter Indwelling Catheter # Bowel Movements 0 - Labs CBC & Chem 7: 05/16/21 03:55 05/16/21 03:55 Labs: Abnormal Lab Results - Last 24 Hours (Table) 05/15/21 05/16/21 05/16/21 Range/Units 18:13 03:55 03:55 RBC 3.88 L (4.10-5.20) X 10*6/uL Hgb 9.8 L (12.0-15.0) g/dL Hct 32.7 L (37.2-46.3) % MCH 25.3 L (27.0-32.0) pg MCHC 30.0 L (32.0-37.0) g/dL RDW 17.3 H (11.5-14.5) % Lymphocytes # 0.83 L (0.90-5.00) X 10*3/uL Sodium 134 L (135-145) mmol/L Anion Gap 7.90 L (10.00-18.00) mmol/L BUN 3.1 L (9.0-27.0) mg/dL BUN/Creatinine Ratio 4.51 L (12.00-20.00) Ratio Glucose 129 H (70-110) mg/dL Calcium 8.5 L (8.7-10.3) mg/dL Urine Appearance Cloudy H (Clear) Urine Protein 1+ H (Negative) Urine Blood Trace H (Negative) Urine RBC 11 H (0-5) /hpf Urine WBC 6 H (0-5) /hpf Urine Bacteria Rare H (None) /hpf Hyaline Casts 3 H (0-2) /lpf Urine Mucus Many H (None) /hpf <Matthieu Arechiga - Last Filed: 05/16/21 19:31> Subjective I have personally seen and examined the patient, reviewed the OFFICE MANAGER RECEPTIONIST /PAs history, exam and MDM and agree with the assessment and plan as written. Based on total visit time, I have performed more than 50% of the visit. As above: Patient doing better today. She did have 1 episode of vomiting. Minimal pain. Labs noted. Continue ambulation. Objective - Vital Signs Vital signs: Vital Signs Temp 97.6 F 05/16/21 13:56 Pulse 70 05/16/21 13:56 Resp 18 05/16/21 13:56 BP 108/63 05/16/21 13:56 Pulse Ox 97 05/16/21 13:56 Intake & Output 05/16/21 05/16/21 05/17/21 06:59 18:59 06:59 Output Total 300 300 Balance -300 -300 Output: Urine 200 300 Emesis 100 Other: Voiding Method Indwelling Catheter Indwelling Catheter # Bowel Movements 0 - Labs CBC & Chem 7: 05/16/21 03:55 05/16/21 03:55 Labs: Abnormal Lab Results - Last 24 Hours (Table) 05/16/21 05/16/21 Range/Units 03:55 03:55 RBC 3.88 L (4.10-5.20) X 10*6/uL Hgb 9.8 L (12.0-15.0) g/dL Hct 32.7 L (37.2-46.3) % MCH 25.3 L (27.0-32.0) pg MCHC 30.0 L (32.0-37.0) g/dL RDW 17.3 H (11.5-14.5) % Lymphocytes # 0.83 L (0.90-5.00) X 10*3/uL Sodium 134 L (135-145) mmol/L Anion Gap 7.90 L (10.00-18.00) mmol/L BUN 3.1 L (9.0-27.0) mg/dL BUN/Creatinine Ratio 4.51 L (12.00-20.00) Ratio Glucose 129 H (70-110) mg/dL Calcium 8.5 L (8.7-10.3) mg/dL Assessment and Plan (1) Colonic mass Current Visit: Yes Status: Acute Code(s): K63.89 - OTHER SPECIFIED DISEASES OF INTESTINE SNOMED Code(s): 002321423
[2021-05-16] MEDS ORDERED: HYDROmorphone 1 MG/ML 1 ML SYRINGE IVP PRN (11:19)
--- NOTE | 2021-05-16 20:40 | P.PN ---
Subjective Principal diagnosis: Colonic mass. The patient is here for partial colectomy related to left colon mass. Discussion with surgery with probable liver metastasis. I long discussion with the patient about treatment. No colon cancer in family. Father of lung cancer at the age of 70 Objective - Vital Signs Vital signs: Vital Signs Temp 98.1 F 05/16/21 19:51 Pulse 60 05/16/21 19:51 Resp 14 05/16/21 19:51 BP 124/84 05/16/21 19:51 Pulse Ox 97 05/16/21 19:51 Intake & Output 05/16/21 05/16/21 05/17/21 06:59 18:59 06:59 Output Total 300 300 Balance -300 -300 Output: Urine 200 300 Emesis 100 Other: Voiding Method Indwelling Catheter Indwelling Catheter # Bowel Movements 0 - Constitutional General appearance: Present: no acute distress, obese - EENT Eyes: Absent: abnormal pupil - Neck Neck: Absent: lymphadenopathy - Respiratory Respiratory: bilateral: CTA - Cardiovascular Rhythm: regular Heart sounds: normal: S1, S2 Abnormal Heart Sounds: Absent: S3 Gallop - Gastrointestinal General gastrointestinal: Present: soft. Absent: tenderness - Psychiatric Psychiatric: Present: A&O x's 3 - Labs CBC & Chem 7: 05/16/21 03:55 05/16/21 03:55 Labs: Abnormal Lab Results - Last 24 Hours (Table) 05/16/21 05/16/21 Range/Units 03:55 03:55 RBC 3.88 L (4.10-5.20) X 10*6/uL Hgb 9.8 L (12.0-15.0) g/dL Hct 32.7 L (37.2-46.3) % MCH 25.3 L (27.0-32.0) pg MCHC 30.0 L (32.0-37.0) g/dL RDW 17.3 H (11.5-14.5) % Lymphocytes # 0.83 L (0.90-5.00) X 10*3/uL Sodium 134 L (135-145) mmol/L Anion Gap 7.90 L (10.00-18.00) mmol/L BUN 3.1 L (9.0-27.0) mg/dL BUN/Creatinine Ratio 4.51 L (12.00-20.00) Ratio Glucose 129 H (70-110) mg/dL Calcium 8.5 L (8.7-10.3) mg/dL Assessment and Plan (1) Colonic mass Current Visit: Yes Status: Acute Code(s): K63.89 - OTHER SPECIFIED DISEASES OF INTESTINE SNOMED Code(s): 635421891 Plan: Future care/prognosis was briefly discussed with the patient she understands oncology needs to most likely be involved. We will continue to follow. Advance diet per surgery. She is complaining that she has significant bloating still with minimal flatus.
[2021-05-17] MEDS: HEPARIN SODIUM,PORCINE/PF 5,000 UNIT/0.5 ML SYRINGE SQ SCH ×3 (00:28→15:42)
[2021-05-17] MEDS: D5-0.45% NACL WITH KCL 20MEQ/L 1,000 ML IV SCH (02:34)
[2021-05-17] MEDS: HYDROcodone/APAP 5-325MG 1 EACH TAB PO PRN ×2 (05:15→22:18)
[2021-05-17] MEDS: LEVOTHYROXINE 50 MCG TAB PO SCH (05:16)
[2021-05-17] MEDS: METOCLOPRAMIDE 5 MG/ML 2 ML VIAL IVP PRN ×2 (05:18→22:39)
[2021-05-17] MEDS: ALBUTEROL NEBULIZED 2.5 MG/3 ML INHALATION SCH ×4 (08:09→20:40)
[2021-05-17 08:59] LABS: HCT 31.5 % (37.2-46.3); HGB 9.7 g/dL (12.0-15.0); MCH 25.6 pg (27.0-32.0); MCHC 30.8 g/dL (32.0-37.0); MCV 83.1 fL (80.0-97.0); Mean Platelet Volume 10.2 fL (9.5-12.2); NRBC Per 100 WBC 0 /100 WBCS (0.0-0.0); Platelet Count 434 X 10*3/uL (140-440); RBC 3.79 X 10*6/uL (4.10-5.20); RDW 17.7 % (11.5-14.5)
[2021-05-17 09:09] LABS: African American GFR (CKD) 117.9 (60.0-200.0); Albumin 3.3 g/dL (3.8-4.9); Albumin/Globulin Ratio 1.38 (1.60-3.17); Anion Gap 12.7 mmol/L (10.00-18.00); Blood Urea Nitrogen 2.8 mg/dL (9.0-27.0); Calcium 8.8 mg/dL (8.7-10.3); Carbon Dioxide 22.3 mmol/L (20.0-27.5); Globulin 2.4 g/dL (1.6-3.3); Non-African American GFR(CKD) 101.7 (60.0-200.0); Potassium 4.3 mmol/L (3.5-5.5); Total Bilirubin 0.2 mg/dL (0.30-1.20); Total Protein 5.7 g/dL (6.2-8.2)
[2021-05-17] MEDS: PANTOPRAZOLE 40 MG/10 ML VIAL IVP SCH ×2 (09:28→22:39)
[2021-05-17] MEDS: FAMOTIDINE 20 MG/2 ML VIAL IV SCH ×2 (09:28→22:39)
[2021-05-17] MEDS: ALVIMOPAN 12 MG CAPSULE PO SCH ×2 (09:28→22:18)
--- NOTE | 2021-05-17 11:28 | P.PN ---
<Alesia Fu - Last Filed: 05/17/21 11:26> Subjective Progress Note Date: 05/17/21 CHIEF COMPLAINT: left colon obstructing mass HISTORY OF PRESENT ILLNESS: Patient is status post left colectomy and takedown of splenic flexure. Postop day #4. Patient's epidural and Jeffrey catheter discontinued yesterday. Patient reports that her pain is controlled. She is urinating without difficulty. Denies any flatus or bowel movement. She has been up and ambulating. She denies any nausea or vomiting. Afebrile. WBC 7.20 hemoglobin 9.7 platelets 434 creatinine 0.7. Patient currently without IV access. Anesthesia is being notified for IV placement. PHYSICAL EXAM: VITAL SIGNS: Reviewed. GENERAL: Well-developed in no acute distress. HEENT: No sclera icterus. Extraocular movements grossly intact. Moist buccal mucosa. Head is atraumatic, normocephalic. ABDOMEN: Soft. Mildly distended. Incision sites clean dry and intact. Abdominal binder in place NEUROLOGIC: Alert and oriented. Cranial nerves II through XII grossly intact. ASSESSMENT: 1. Left colon mass, hepatic mass status post left colectomy and takedown of splenic flexure 2. Postoperative ileus PLAN: -Keep patient nothing by mouth -Encouraged patient to increase activity level -Encouraged patient to use incentive spirometer -Continue pain medication as needed -Continue Reglan for ileus -GI prophylaxis Pepcid and DVT prophylaxis subcu heparin Physician Sports Cartoonist note has been reviewed by physician. Signing provider agrees with the documented findings, assessment, and plan of care. Objective - Vital Signs Vital signs: Vital Signs Temp 98.7 F 05/17/21 07:53 Pulse 79 05/17/21 07:53 Resp 18 05/17/21 07:53 BP 97/56 05/17/21 07:53 Pulse Ox 99 05/17/21 07:53 Intake & Output 05/16/21 05/17/21 05/17/21 18:59 06:59 18:59 Output Total 300 400 Balance -300 -400 Output: Urine 300 400 Other: Voiding Method Indwelling Catheter Toilet Bedside Commode # Voids 1 - Labs CBC & Chem 7: 05/17/21 03:34 05/17/21 03:34 Labs: Abnormal Lab Results - Last 24 Hours (Table) 05/17/21 05/17/21 Range/Units 03:34 03:34 RBC 3.79 L (4.10-5.20) X 10*6/uL Hgb 9.7 L (12.0-15.0) g/dL Hct 31.5 L (37.2-46.3) % MCH 25.6 L (27.0-32.0) pg MCHC 30.8 L (32.0-37.0) g/dL RDW 17.7 H (11.5-14.5) % BUN 2.8 L (9.0-27.0) mg/dL BUN/Creatinine Ratio 4.00 L (12.00-20.00) Ratio Total Bilirubin 0.20 L (0.30-1.20) mg/dL Total Protein 5.7 L (6.2-8.2) g/dL Albumin 3.3 L (3.8-4.9) g/dL Albumin/Globulin Ratio 1.38 L (1.60-3.17) g/dL <Matthieu Arechiga - Last Filed: 05/17/21 17:18> Subjective I have personally seen and examined the patient, reviewed the FINANCE OFFICER /PAs history, exam and MDM and agree with the assessment and plan as written. Based on total visit time, I have performed more than 50% of the visit. As above: No further vomiting. Some bloating. No flatus or bowel movement. Patient is very hungry. Her abdominal examination is benign. Begin popsicles tonight. Objective - Vital Signs Vital signs: Vital Signs Temp 99.9 F H 05/17/21 14:00 Pulse 80 05/17/21 14:00 Resp 18 05/17/21 07:53 BP 109/74 05/17/21 14:00 Pulse Ox 97 05/17/21 14:00 Intake & Output 05/16/21 05/17/21 05/17/21 18:59 06:59 18:59 Output Total 300 400 Balance -300 -400 Output: Urine 300 400 Other: Voiding Method Indwelling Catheter Toilet Bedside Commode # Voids 1 - Labs CBC & Chem 7: 05/17/21 03:34 05/17/21 03:34 Labs: Abnormal Lab Results - Last 24 Hours (Table) 03/15/22 03/15/22 Range/Units 03:34 03:34 RBC 3.79 L (4.10-5.20) X 10*6/uL Hgb 9.7 L (12.0-15.0) g/dL Hct 31.5 L (37.2-46.3) % MCH 25.6 L (27.0-32.0) pg MCHC 30.8 L (32.0-37.0) g/dL RDW 17.7 H (11.5-14.5) % BUN 2.8 L (9.0-27.0) mg/dL BUN/Creatinine Ratio 4.00 L (12.00-20.00) Ratio Total Bilirubin 0.20 L (0.30-1.20) mg/dL Total Protein 5.7 L (6.2-8.2) g/dL Albumin 3.3 L (3.8-4.9) g/dL Albumin/Globulin Ratio 1.38 L (1.60-3.17) g/dL Assessment and Plan (1) Colonic mass Current Visit: Yes Status: Acute Code(s): K63.89 - OTHER SPECIFIED DISEASES OF INTESTINE SNOMED Code(s): 740498888
--- NOTE | 2021-05-17 12:54 | P.PN ---
Subjective Principal diagnosis: Colonic mass. The patient is here for partial colectomy related to left colon mass. Discussion with surgery with probable liver metastasis. I long discussion with the patient about treatment. No colon cancer in family. Father of lung cancer at the age of 70 The patient states she feels much better because she has slept the night. No flatus stated. Objective - Vital Signs Vital signs: Vital Signs Temp 98.7 F 05/17/21 07:53 Pulse 79 05/17/21 07:53 Resp 18 05/17/21 07:53 BP 97/56 05/17/21 07:53 Pulse Ox 99 05/17/21 07:53 Intake & Output 05/16/21 05/17/21 05/17/21 18:59 06:59 18:59 Output Total 300 400 Balance -300 -400 Output: Urine 300 400 Other: Voiding Method Indwelling Catheter Toilet Bedside Commode # Voids 1 - Constitutional General appearance: Present: obese - EENT Eyes: Absent: abnormal pupil - Neck Neck: Absent: lymphadenopathy - Respiratory Respiratory: bilateral: CTA - Cardiovascular Rhythm: regular - Gastrointestinal General gastrointestinal: Present: decreased bowel sounds - Integumentary Integumentary: Absent: cellulitis - Neurologic Neurologic: Present: CNII-XII intact - Labs CBC & Chem 7: 05/17/21 03:34 05/17/21 03:34 Labs: Abnormal Lab Results - Last 24 Hours (Table) 05/17/21 05/17/21 Range/Units 03:34 03:34 RBC 3.79 L (4.10-5.20) X 10*6/uL Hgb 9.7 L (12.0-15.0) g/dL Hct 31.5 L (37.2-46.3) % MCH 25.6 L (27.0-32.0) pg MCHC 30.8 L (32.0-37.0) g/dL RDW 17.7 H (11.5-14.5) % BUN 2.8 L (9.0-27.0) mg/dL BUN/Creatinine Ratio 4.00 L (12.00-20.00) Ratio Total Bilirubin 0.20 L (0.30-1.20) mg/dL Total Protein 5.7 L (6.2-8.2) g/dL Albumin 3.3 L (3.8-4.9) g/dL Albumin/Globulin Ratio 1.38 L (1.60-3.17) g/dL Assessment and Plan (1) Colonic mass Current Visit: Yes Status: Acute Code(s): K63.89 - OTHER SPECIFIED DISEASES OF INTESTINE SNOMED Code(s): 693945315 Plan: Future care/prognosis was briefly discussed with the patient she understands oncology needs to most likely be involved. We will continue to follow. Advance diet per surgery. She is complaining that she has significant bloating still with minimal flatus. See orders otherwise.
[2021-05-18] MEDS: HEPARIN SODIUM,PORCINE/PF 5,000 UNIT/0.5 ML SYRINGE SQ SCH ×3 (00:31→16:16)
[2021-05-18] MEDS: D5-0.45% NACL WITH KCL 20MEQ/L 1,000 ML IV SCH (02:40)
[2021-05-18] MEDS: LEVOTHYROXINE 50 MCG TAB PO SCH (05:11)
[2021-05-18] MEDS: FAMOTIDINE 20 MG/2 ML VIAL IV SCH ×2 (07:35→20:41)
[2021-05-18] MEDS: PANTOPRAZOLE 40 MG/10 ML VIAL IVP SCH ×2 (07:35→20:41)
--- NOTE | 2021-05-18 08:18 | P.PN ---
Subjective Principal diagnosis: Colonic mass. The patient is here for partial colectomy related to left colon mass. Discussion with surgery with probable liver metastasis. I long discussion with the patient about treatment. No colon cancer in family. Father of lung cancer at the age of 70 The patient states she feels much better because she has slept the night. Voiding without difficulty now. Objective - Vital Signs Vital signs: Vital Signs Temp 98.2 F 05/18/21 07:44 Pulse 82 05/18/21 07:44 Resp 18 05/18/21 07:44 BP 147/91 05/18/21 07:44 Pulse Ox 98 05/18/21 07:44 Intake & Output 05/17/21 05/18/21 05/18/21 18:59 06:59 18:59 Other: Voiding Method Bedside Commode Bedside Commode # Voids 1 1 # Bowel Movements 1 1 - Constitutional General appearance: Present: obese - EENT Eyes: Absent: abnormal pupil - Neck Neck: Absent: lymphadenopathy - Respiratory Respiratory: bilateral: CTA - Cardiovascular Rhythm: regular Heart sounds: normal: S1, S2 Abnormal Heart Sounds: Absent: S3 Gallop - Gastrointestinal General gastrointestinal: Present: soft. Absent: tenderness - Integumentary Integumentary: Absent: cellulitis - Labs CBC & Chem 7: 05/17/21 03:34 05/17/21 03:34 Labs: Abnormal Lab Results - Last 24 Hours (Table) 05/17/21 05/17/21 Range/Units 03:34 03:34 RBC 3.79 L (4.10-5.20) X 10*6/uL Hgb 9.7 L (12.0-15.0) g/dL Hct 31.5 L (37.2-46.3) % MCH 25.6 L (27.0-32.0) pg MCHC 30.8 L (32.0-37.0) g/dL RDW 17.7 H (11.5-14.5) % BUN 2.8 L (9.0-27.0) mg/dL BUN/Creatinine Ratio 4.00 L (12.00-20.00) Ratio Total Bilirubin 0.20 L (0.30-1.20) mg/dL Total Protein 5.7 L (6.2-8.2) g/dL Albumin 3.3 L (3.8-4.9) g/dL Albumin/Globulin Ratio 1.38 L (1.60-3.17) g/dL Assessment and Plan (1) Colonic mass Current Visit: Yes Status: Acute Code(s): K63.89 - OTHER SPECIFIED DISEASES OF INTESTINE SNOMED Code(s): 002256062 Plan: Future care/prognosis was briefly discussed with the patient she understands oncology needs to most likely be involved. We will continue to follow. Advance diet per surgery. The patient is now voiding without difficulty. Anticipate discharge in the next 24 hours if stable.
[2021-05-18 08:53] LABS: Anisocytosis Slight; Basophils % (A) 1 %; Eosinophils # (A) 0.7 k/uL (0-0.7); Eosinophils % (A) 11 %; HCT 33.3 % (34.0-46.0); HGB 10.5 gm/dL (11.4-16.0); Hypochromasia Slight; Lymphocytes # (A) 0.9 k/uL (1.0-4.8); Lymphocytes % (A) 14 %; MCH 26.6 pg (25.0-35.0); MCHC 31.5 g/dL (31.0-37.0); MCV 84.4 fL (80.0-100.0); Mean Platelet Volume 6.8; Monocytes # (A) 0.3 k/uL (0-1.0); Monocytes % (A) 5 %; Neutrophils # (A) 4.1 k/uL (1.3-7.7); Neutrophils % (A) 67 %; Platelet Count 413 k/uL (150-450); RBC 3.94 m/uL (3.80-5.40); RDW 17.2 % (11.5-15.5); WBC 6.1 k/uL (3.8-10.6)
[2021-05-18] MEDS: ALBUTEROL NEBULIZED 2.5 MG/3 ML INHALATION SCH ×4 (09:17→21:13)
--- NOTE | 2021-05-18 12:00 | P.PN ---
Subjective Progress Note Date: 05/18/21 CHIEF COMPLAINT: left colon obstructing mass HISTORY OF PRESENT ILLNESS: Patient is status post left colectomy and takedown of splenic flexure. Postop day #5. Pathology result pending. Patient has started having bowel movements. She reports 5 stools yesterday. She did have a low-grade temp of 99. She was taking and popsicles yesterday and tolerating them. She reports her pain is controlled. WBC is 6.1 hemoglobin 10.5 platelets 413 PHYSICAL EXAM: VITAL SIGNS: Reviewed. GENERAL: Well-developed in no acute distress. HEENT: No sclera icterus. Extraocular movements grossly intact. Moist buccal mucosa. Head is atraumatic, normocephalic. ABDOMEN: Soft. Nondistended. Incision sites clean dry and intact. Abdominal binder in place NEUROLOGIC: Alert and oriented. Cranial nerves II through XII grossly intact. ASSESSMENT: 1. Left colon mass, hepatic mass status post left colectomy and takedown of splenic flexure 2. Postoperative ileus resolving PLAN: -Start clear liquid diet -Discussed with nursing staff to have patient shower -Change incisional paige -Encouraged patient to increase activity level -Encouraged patient to use incentive spirometer -Continue pain medication as needed -Hep-Lock IV fluids -GI prophylaxis Pepcid and DVT prophylaxis subcu heparin Physician Rn Cardiac note has been reviewed by physician. Signing provider agrees with the documented findings, assessment, and plan of care. Objective - Vital Signs Vital signs: Vital Signs Temp 98.2 F 05/18/21 07:44 Pulse 82 05/18/21 07:46 Resp 18 05/18/21 07:46 BP 147/91 05/18/21 07:44 Pulse Ox 98 05/18/21 07:44 Intake & Output 05/17/21 05/18/21 05/18/21 18:59 06:59 18:59 Other: Voiding Method Bedside Commode Bedside Commode Bedside Commode # Voids 1 1 # Bowel Movements 1 1 - Labs CBC & Chem 7: 05/18/21 08:21 05/17/21 03:34 Labs: Abnormal Lab Results - Last 24 Hours (Table) 05/18/21 Range/Units 08:21 Hgb 10.5 L (11.4-16.0) gm/dL Hct 33.3 L (34.0-46.0) % RDW 17.2 H (11.5-15.5) % Lymphocytes # 0.9 L (1.0-4.8) k/uL
[2021-05-18] MEDS: HYDROcodone/APAP 5-325MG 1 EACH TAB PO PRN (14:13)
[2021-05-18 14:30] VITALS: BMI 45.9
[2021-05-18] MEDS ORDERED: ACETAMINOPHEN TAB 325 MG TAB PO PRN (20:18)
[2021-05-19] MEDS: HEPARIN SODIUM,PORCINE/PF 5,000 UNIT/0.5 ML SYRINGE SQ SCH ×2 (00:49→06:43)
[2021-05-19] MEDS: LEVOTHYROXINE 50 MCG TAB PO SCH (05:58)
[2021-05-19 07:40] VITALS: BP 163/75; PULSE 69; RESP 18; TEMP 98.7
[2021-05-19] MEDS: ALBUTEROL NEBULIZED 2.5 MG/3 ML INHALATION SCH ×2 (08:44→12:18)
[2021-05-19] MEDS: FAMOTIDINE 20 MG/2 ML VIAL IV SCH (09:47)
[2021-05-19] MEDS: PANTOPRAZOLE 40 MG/10 ML VIAL IVP SCH (09:47)
--- NOTE | 2021-05-19 13:26 | P.DS ---
Providers Date of admission: 05/13/21 06:03 Expected date of discharge: 05/19/21 Attending physician: Moody Guevara Consults: 05/13/21 10:11 Consult Physician Routine Consulting Provider: Kenney Kwon Consult Reason/Comments: Medical management Do you want consulting provider notified?: Yes Primary care physician: Kenney Kwon Hospital Course: Discharge diagnosis 1. Left colon mass, hepatic mass status post left colectomy and takedown of splenic flexure 2. Postoperative ileus resolved Hospital course This a 50-year-old female who had complaints of abdominal pain and cramps nausea. Her CAT scan was suggestive of the right colon cancer. Colonoscopy showed a near obstructing left colon mass. Patient is status post left colectomy with takedown of splenic flexure for left colon mass and also had evidence of a hepatic mass. Patient tolerated surgery well pain is controlled. She is up and ambulating. She is tolerating diet. She is afebrile. 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 Dr. Guevara recommended the patient follow-up with oncology outpatient for chemotherapy wants she is healed from surgery. She is stable for discharge. Please refer to chart for any further details. Physician Radiology Asst note has been reviewed by physician. Signing provider agrees with the documented findings, assessment, and plan of care. Patient Condition at Discharge: Stable Plan - Discharge Summary Discharge Rx Participant: Yes New Discharge Prescriptions: New Docusate [Colace] 100 mg PO BID #30 capsule Multivitamins, Thera [Multivitamin (formulary)] 1 tab PO DAILY #30 tablet HYDROcodone/APAP 5-325MG [[place] 5-325] 1 tab PO Q6HR PRN 3 Days #12 tab PRN Reason: Pain Continue Pantoprazole [Protonix] 40 mg PO QAM Levothyroxine Sodium [Synthroid] 50 mcg PO QAM Albuterol Inhaler [Ventolin Hfa Inhaler] 1 - 2 puff INHALATION DIRECTED PRN PRN Reason: Asthma Gabapentin [Neurontin] 100 mg PO TID PRN PRN Reason: Migraine Headache Discharge Medication List Albuterol Inhaler [Ventolin Hfa Inhaler] 1 - 2 puff INHALATION DIRECTED PRN 04/13/21 [History] Gabapentin [Neurontin] 100 mg PO TID PRN 04/13/21 [History] Levothyroxine Sodium [Synthroid] 50 mcg PO QAM 04/13/21 [History] Pantoprazole [Protonix] 40 mg PO QAM 04/13/21 [History] Docusate [Colace] 100 mg PO BID #30 capsule 05/19/21 [Rx] HYDROcodone/APAP 5-325MG [[place] 5-325] 1 tab PO Q6HR PRN 3 Days #12 tab 05/19/21 [Rx] Multivitamins, Thera [Multivitamin (formulary)] 1 tab PO DAILY #30 tablet 05/19/21 [Rx] Follow up Appointment(s)/Referral(s): Kenney Kwon MD [Primary Care Provider] - 2 Weeks () Moody Guevara MD [STAFF PHYSICIAN] - 1 Week Activity/Diet/Wound Care/Special Instructions: After discharge you need to follow up with Dr. Kwon to have a sleep study set up. No driving while taking [place] No lifting over 10 pounds You may shower. No soaking or tub baths for 2 weeks Very light activity until you are reevaluated at your follow up appointment with your surgeon Discharge Disposition: HOME SELF-CARE
== END 2021-05-19 14:59 | disposition home or self-care (01) | DRG 330 ==
LOC: 2ORMAIN 06:03 → 4SSUR 10:33
PROVIDERS: ADMIT Surgery; ATTEND Surgery
PROC: 0DBL0ZZ Excision of Transverse Colon, Open Approach (ICD-10-PCS; 2021-05-13)
PROC: 0DBU0ZZ Excision of Omentum, Open Approach (ICD-10-PCS; 2021-05-13)
PROC: 0DTG0ZZ Resection of Left Large Intestine, Open Approach (ICD-10-PCS; principal; 2021-05-13 07:45)
DX: C18.9 Malignant neoplasm of colon, unspecified (principal); C78.7 Secondary malignant neoplasm of liver and intrahepatic bile duct; K56.7 Ileus, unspecified; Z68.42 Body mass index [BMI] 45.0-49.9, adult; R50.82 Postprocedural fever; G43.909 Migraine, unspecified, not intractable, without status migrainosus; R16.0 Hepatomegaly, not elsewhere classified; K63.89 Other specified diseases of intestine; K76.89 Other specified diseases of liver; E03.9 Hypothyroidism, unspecified; E66.01 Morbid (severe) obesity due to excess calories; E78.5 Hyperlipidemia, unspecified; J45.909 Unspecified asthma, uncomplicated; L29.9 Pruritus, unspecified; Z79.890 Hormone replacement therapy; Z79.899 Other long term (current) drug therapy; Z80.1 Family history of malignant neoplasm of trachea, bronchus and lung; Z82.49 Family history of ischemic heart disease and other diseases of the circulatory system; Z86.16 Personal history of COVID-19; Z88.0 Allergy status to penicillin; Z88.8 Allergy status to other drugs, medicaments and biological substances; Z91.018 Allergy to other foods; Z87.891 Personal history of nicotine dependence; Z98.51 Tubal ligation status; Z90.49 Acquired absence of other specified parts of digestive tract
CPT/HCPCS: 80048; 80053; 81001; 81025; 85025; 85027; 86850; 86900; 86901; 88309; 94640; 94760

== ENCOUNTER 2021-07-13 08:55 | Day surgery (SDC) | payer BC ==
[2021-07-12 10:40] VITALS: BMI 43.7
[~2021-07-13 08:55] MED LIST changes: -CLINDAMYCIN 900 MG in DEXTROSE 5% IN WATER 50 ML IVPB PRN; -GENTAMICIN 460 MG in SODIUM CHLORIDE 0.9% 100 ML IVPB PRN; +HYDROmorphone 0.5 MG/0.5 ML SYRINGE IVP PRN; +LACTATED RINGERS 1,000 ML IV SCH; +LIDOCAINE 1% (10MG/ML) FOR IV START INTRADERMA PRN; +Pre Op ABX Message 1 EACH MISC MISCELLANE ONE
[2021-07-13 10:01] VITALS: RESP 16; TEMP 97.3
[2021-07-13] MEDS ORDERED: ONDANSETRON 4 MG/2 ML VIAL ONE (10:07)
[2021-07-13] MEDS ORDERED: BUPIVACAINE (PF) 0.25% 30 ML VIAL SQ ONE ×3 (10:50→11:30)
[2021-07-13] MEDS ORDERED: HEPARIN SODIUM,PORCINE 100 UNIT/ML 5 ML VIAL IV ONE ×3 (10:50→11:30)
[2021-07-13] MEDS ORDERED: IOPAMIDOL-370 50ML BTL INJ ONE ×2 (10:51→11:30)
[2021-07-13] MEDS ORDERED: KETOROLAC 15 MG/ML 1 ML VIAL ONE (10:58)
[2021-07-13] MEDS ORDERED: KETAMINE 10 MG/ML 20 ML VIAL ONE (10:58)
[2021-07-13] MEDS ORDERED: fentaNYL (PF) 50 MCG/ML 2 ML AMP ONE (10:58)
[2021-07-13] MEDS ORDERED: PROPOFOL 10 MG/ML 20 ML VIAL IV ONE (10:58)
[2021-07-13] MEDS ORDERED: MIDAZOLAM 2 MG/2 ML VIAL ONE (10:58)
[2021-07-13] MEDS ORDERED: LIDOCAINE 2% INJ 20 MG/ML (2 ML VIAL) ONE (10:58)
--- NOTE | 2021-07-13 12:01 | P.GSHP ---
History of Present Illness H&P Date: 07/13/21 Chief Complaint: History of colon cancer This a 50-year-old female who presents today for insertion of Port-A-Cath. Patient was recently diagnosed with colon cancer. Past Medical History Past Medical History: Asthma, Cancer, Hyperlipidemia, Osteoarthritis (OA), Thyroid Disorder Additional Past Medical History / Comment(s): Hx Covid 03/22/21. Migraines. "Genetic Arrythmia, had work up, no concerns.", colon cancer History of Any Multi-Drug Resistant Organisms: None Reported Past Surgical History: Bowel Resection, Cholecystectomy, Tubal Ligation Additional Past Surgical History / Comment(s): EGD, colonoscopy, 05/12/21 colectomy Past Anesthesia/Blood Transfusion Reactions: Previous Problems w/ Anesthesia, Motion Sickness Additional Past Anesthesia/Blood Transfusion Reaction / Comment(s): Slow to wake up. Smoking Status: Former smoker - Past Family History Father Family Medical History: Cancer, Pulmonary Embolus Mother Family Medical History: Cancer Medications and Allergies Home Medications Medication Instructions Recorded Confirmed Type Albuterol Inhaler [Ventolin Hfa 1 - 2 puff INHALATION DIRECTED 04/13/21 07/13/21 History Inhaler] PRN Gabapentin [Neurontin] 100 mg PO TID PRN 04/13/21 07/13/21 History Levothyroxine Sodium [Synthroid] 50 mcg PO QAM 04/13/21 07/13/21 History Pantoprazole [Protonix] 40 mg PO QAM 04/13/21 07/13/21 History Docusate [Colace] 100 mg PO BID #30 capsule 05/19/21 07/13/21 Rx Multivitamins, Thera [Multivitamin 1 tab PO DAILY #30 tablet 05/19/21 07/13/21 Rx (formulary)] Calcium Carbonate/Vitamin D3 1 tab PO DAILY 07/06/21 07/13/21 History [Calcium 500 mg Chewable Tablet] Allergies Allergy/AdvReac Type Severity Reaction Status Date / Time Sterling And Derivatives Allergy Itching Verified 07/13/21 10:02 [Sterling] Penicillins Allergy Dyspnea Verified 07/13/21 10:02 prednisone Allergy Rash/Hives Verified 07/13/21 10:02 Surgical - Exam Vital Signs Temp Pulse Resp BP Pulse Ox 97.3 F L 83 16 127/77 96 07/13/21 10:00 07/13/21 10:00 07/13/21 10:00 07/13/21 10:00 07/13/21 10:00 - General well developed, well nourished, no distress - Eyes PERRL - ENT normal pinna - Neck no masses - Respiratory normal expansion - Cardiovascular Rhythm: regular - Abdomen Abdomen: soft, non tender Assessment and Plan Assessment: Recent diagnosis of colon cancer. Patient undergo Port-A-Cath placement.
--- NOTE | 2021-07-13 12:03 | P.OP ---
Date of Procedure: 07/13/21 Preoperative Diagnosis: History of colon cancer Postoperative Diagnosis: History of colon cancer Procedure(s) Performed: Insertion of right subclavian Port-A-Cath Anesthesia: SILVINA Surgeon: Moody Guevara Estimated Blood Loss (ml): 5 Pathology: none sent Condition: stable Disposition: PACU Description of Procedure: MThe patient was placed on the operating table in the supine position. The patient received IV sedation. The patient's chest was prepped and draped in the usual sterile fashion. A roll had been placed between the shoulder blades in a longitudinal fashion. After prepping and draping the skin was anesthetized 1% local Xylocaine. And then using the Seldinger technique the subclavian vein was cannulated. A wire was placed into the vein and fluoroscopy position the wire at the atrial caval junction. Next the dilator sheath was placed over top the wire and the wire was withdrawn. The catheter was positioned at the atriocaval position. The catheter was placed through the sheath after the dilator was withdrawn. The sheath was then withdrawn. Position of the catheter was confirmed with fluoroscopy. The Port-A-Cath was connected to the catheter. The Port-A-Cath was flushed with saline and then heparinized saline. The skin was closed interrupted 3-0 Monocryl suture. Dermabond was applied. Patient tolerated procedure well and was sent to recovery room stable condition.
--- NOTE | 2021-07-13 12:16 | FL ---
Fluoroscopy History: PORTACATH INSERT port a cath insertion, 7sec fl time
--- NOTE | 2021-07-13 12:26 | XR ---
EXAMINATION TYPE: XR chest 1V portable DATE OF EXAM: 07/13/2021 COMPARISON: 09/04/2018 HISTORY: Mediport TECHNIQUE: Single frontal view of the chest is obtained. FINDINGS: Right-sided Mediport catheter with its distal tip overlying the SVC. No evidence for pneum othorax. There is no focal air space opacity, pleural effusion, or pneumothorax seen. The cardiac silhouette size is within normal limits. The osseous structures are intact. IMPRESSION: 1. No acute process.
[2021-07-13 12:51] VITALS: BP 110/73; PULSE 62
== END 2021-07-13 13:14 | disposition home or self-care (01) ==
LOC: OR 08:55
PROVIDERS: ATTEND Surgery
DX: C18.9 Malignant neoplasm of colon, unspecified (principal); J45.909 Unspecified asthma, uncomplicated; E78.5 Hyperlipidemia, unspecified; M19.90 Unspecified osteoarthritis, unspecified site; E07.9 Disorder of thyroid, unspecified; G43.909 Migraine, unspecified, not intractable, without status migrainosus; I49.9 Cardiac arrhythmia, unspecified; Z86.16 Personal history of COVID-19; Z90.49 Acquired absence of other specified parts of digestive tract; Z87.891 Personal history of nicotine dependence; Z79.890 Hormone replacement therapy; Z79.899 Other long term (current) drug therapy; Z88.0 Allergy status to penicillin; Z88.8 Allergy status to other drugs, medicaments and biological substances; Z91.018 Allergy to other foods; Z98.51 Tubal ligation status; Z82.49 Family history of ischemic heart disease and other diseases of the circulatory system
CPT/HCPCS: 81025; 77001; 71045; 36561; C1788; J2250; J1642; J2405; J3010; J1885; J2704; J1644; J2001

== ENCOUNTER → 2021-07-15 | Outpatient (CLI) | payer BC ==
--- NOTE | 2021-07-18 06:31 | PE ---
EXAMINATION TYPE: PET CT fusion skull to thigh DATE OF EXAM: 07/15/2021 COMPARISON: CT abdomen and pelvis May 09, 2021 HISTORY: Newly diagnosed colon cancer. Had recent surgical resection. TECHNIQUE: Following the intravenous administration of 13.19 mCi of F-18 FDG, whole body images are performed from the skull base to the midthigh. Images are reviewed on the computer in the coronal, a xial, and sagittal planes. Reconstructed rotating images are created on independent workstation and reviewed on the computer. A localization and attenuation correction CT is performed in conjunction with the PET scan. Blood glucose level equals 98 SCAN: Initial Scan FINDINGS: SKULL BASE AND NECK: No areas of abnormal hypermetabolic uptake. CHEST, MEDIASTINUM, AND HILAR REGION: No areas of abnormal hypermetabolic uptake. ABDOMEN AND PELVIS: Hepatic metastatic disease redemonstrated. Multiple hypermetabolic masses are aga in seen. For reference lateral right hepatic lobe mass measures roughly 9.0 cm long axis axial image 127, max SUV is 11.2. For reference there is left hepatic dome lesion measuring roughly 6.0 cm cm randy g axis axial image 104, max SUV is 10.39. Multifocal areas of increased hypermetabolic uptake in the right colon is nonspecific. Some increased uptake at level of sigmoid colon axial image 209 is also nonspecific. Increased subcentimeter focus left pelvis axial image 215 is thought to be along course of the distal left ureter. Normal excretion . No definitive additional areas of abnormal hypermetabolic uptake. OSSEOUS STRUCTURES: No definitive areas of abnormal hypermetabolic uptake. OTHER CT: There is right subclavian Mediport catheter terminating in SVC. Low lung volumes are presen t. Surgical sutures in the mid abdominal colon near axial image 176 are now present. Cholecystectomy cli ps are incidentally noted. IMPRESSION: Hepatic metastatic disease redemonstrated. No additional metastatic disease clearly ident ified.
== END | disposition home or self-care (01) ==
LOC: RADPETMAIN 15:45
PROVIDERS: ATTEND Internal Medicine Hematology & Oncology
DX: C18.9 Malignant neoplasm of colon, unspecified (principal); C78.7 Secondary malignant neoplasm of liver and intrahepatic bile duct
CPT/HCPCS: 78815; A9552

== ENCOUNTER 2021-07-26 08:52 | Day surgery (SDC) | payer BC ==
[2021-07-26] MEDS ORDERED: ALPRAZolam 0.5 MG TAB PO PRN (09:31)
[2021-07-26] MEDS ORDERED: HYDROmorphone 0.5 MG/0.5 ML SYRINGE IVP PRN (09:31)
[2021-07-26 09:47] VITALS: RESP 18; TEMP 98.1
[2021-07-26 09:51] LABS: Mean Platelet Volume 7.1; Platelet Count 568 k/uL (150-450)
[2021-07-26 11:17] LABS: Prothrombin Time 10.5 sec (9.0-12.0)
[2021-07-26 12:39] VITALS: BP 125/80
--- NOTE | 2021-07-26 13:04 | US ---
EXAMINATION TYPE: US biopsy liver DATE OF EXAM: 07/26/2021 HISTORY: Liver masses. FINDINGS: Maximal barrier technique was utilized. Hand hygiene achieved with soap and water and alco hol-based hand rub. The skin overlying a suitable path to the patient's mass in the right lobe of gala er was localized with ultrasound and the overlying skin prepped and draped. Ultrasound was utilized with sterile technique. Lidocaine was used for local anesthesia. A skin alexander was made with a scalpe l. An 18-gauge needle was advanced under direct ultrasound guidance and core specimen obtained of th e mass. Single pass was made. Specimen submitted in formalin to Pathology. Following the procedure, hemostasis achieved and the patient is discharged in stable condition without complication. IMPRESSION:STATUS POST ULTRASOUND GUIDED CORE BIOPSY OF right lobe liver MASS, PATHOLOGY IS PENDING. THIS PROCEDURE IS PERFORMED BY THE UNDERSIGNED.
[2021-07-26 18:16] VITALS: PULSE 64
== END 2021-07-26 16:35 | disposition home or self-care (01) ==
LOC: RADPROMAIN 08:52
PROVIDERS: ATTEND Internal Medicine Hematology & Oncology
DX: C18.9 Malignant neoplasm of colon, unspecified (principal)
CPT/HCPCS: 47000; 85049; 85610; 88342; 88307; 88341; 36415; 76942; J1170

== ENCOUNTER 2021-07-27 10:11 | Day surgery (SDC) | payer BC ==
[2021-07-22 15:02] VITALS: BMI 43.2
[~2021-07-27 10:11] MED LIST changes: -HYDROmorphone 0.5 MG/0.5 ML SYRINGE IVP PRN; +ONDANSETRON 4 MG/2 ML VIAL IVP ONE; -Pre Op ABX Message 1 EACH MISC MISCELLANE ONE; +ceFAZolin 3 GM in SODIUM CHLORIDE 0.9% 100 ML IVPB PRN
--- NOTE | 2021-07-27 10:48 | P.GSHP ---
History of Present Illness H&P Date: 07/27/21 Chief Complaint: Port-A-Cath malfunction This is a 50-year-old female who presents today for removal and placement of Port-A-Cath. Patient had a previously placed Port-A-Cath. The Port-A-Cath his rotated. She presents today for removal and replacement. Past Medical History Past Medical History: Asthma, Cancer, Hyperlipidemia, Osteoarthritis (OA), Thyroid Disorder Additional Past Medical History / Comment(s): Hx Covid 03/22/21. Migraines. "Genetic Arrythmia, had work up, no concerns." Current colon cancer. History of Any Multi-Drug Resistant Organisms: None Reported Past Surgical History: Bowel Resection, Cholecystectomy, Tubal Ligation Additional Past Surgical History / Comment(s): EGD, colonoscopy, 05/12/21 colectomy, port a catheter insertion. Past Anesthesia/Blood Transfusion Reactions: Previous Problems w/ Anesthesia, Motion Sickness Additional Past Anesthesia/Blood Transfusion Reaction / Comment(s): Slow to wake up. Past Psychological History: No Psychological Hx Reported Smoking Status: Former smoker Past Alcohol Use History: None Reported Additional Past Alcohol Use History / Comment(s): Quit smoking 16 yrs ago, smoked for 20 yrs. Past Drug Use History: None Reported - Past Family History Father Family Medical History: Cancer, Pulmonary Embolus Mother Family Medical History: Cancer Medications and Allergies Home Medications Medication Instructions Recorded Confirmed Type Albuterol Inhaler [Ventolin Hfa 1 - 2 puff INHALATION DIRECTED 04/13/21 07/22/21 History Inhaler] PRN Gabapentin [Neurontin] 100 mg PO TID PRN 04/13/21 07/22/21 History Levothyroxine Sodium [Synthroid] 50 mcg PO QAM 04/13/21 07/22/21 History Pantoprazole [Protonix] 40 mg PO QAM 04/13/21 07/22/21 History Multivitamins, Thera [Multivitamin 1 tab PO DAILY #30 tablet 05/19/21 07/22/21 Rx (formulary)] Calcium Carbonate/Vitamin D3 1 tab PO DAILY 07/06/21 07/22/21 History [Calcium 500 mg Chewable Tablet] Allergies Allergy/AdvReac Type Severity Reaction Status Date / Time Rangely And Derivatives Allergy Itching Verified 07/27/21 10:38 [Rangely] Penicillins Allergy Dyspnea Verified 07/27/21 10:38 prednisone Allergy Rash/Hives Verified 07/27/21 10:38 Surgical - Exam - General well developed, well nourished, no distress - Eyes PERRL - ENT normal pinna - Neck no masses - Respiratory normal expansion - Cardiovascular Rhythm: regular - Abdomen Abdomen: soft, non tender Assessment and Plan Assessment: Port-A-Cath malfunction. We'll perform removal and placement of Port-A-Cath.
[2021-07-27] MEDS ORDERED: SUCCINYLCHOLINE CHLORIDE 100 MG/5 ML SYR IV ONE (12:15)
[2021-07-27] MEDS ORDERED: MIDAZOLAM 2 MG/2 ML VIAL ONE (12:15)
[2021-07-27] MEDS ORDERED: LIDOCAINE 2% INJ 20 MG/ML (2 ML VIAL) ONE (12:15)
[2021-07-27] MEDS ORDERED: PROPOFOL 10 MG/ML 20 ML VIAL IV ONE (12:15)
[2021-07-27] MEDS ORDERED: fentaNYL (PF) 50 MCG/ML 2 ML AMP ONE (12:15)
[2021-07-27] MEDS ORDERED: BUPIVACAINE (PF) 0.25% 30 ML VIAL SQ ONE ×2 (12:57)
[2021-07-27] MEDS ORDERED: IOPAMIDOL-370 100ML BTL MISCELLANE ONE (12:57)
[2021-07-27] MEDS ORDERED: IOPAMIDOL-370 50ML BTL IRRIGATION ONE (13:02)
[2021-07-27 13:32] VITALS: TEMP 97
--- NOTE | 2021-07-27 13:37 | FL ---
Fluoroscopy INDICATION: Pain FINDINGS: Fluoroscopy time: 7 seconds. Images obtained: 1. IMPRESSIONS: 1. Documentation of fluoroscopy.
--- NOTE | 2021-07-27 13:39 | P.OP ---
Date of Procedure: 07/27/21 Preoperative Diagnosis: Port-A-Cath malfunction Postoperative Diagnosis: Port-A-Cath malfunction Procedure(s) Performed: Removal and replacement of right subclavian Port-A-Cath Anesthesia: SILVINA Surgeon: Moody Guevara Estimated Blood Loss (ml): 5 Pathology: none sent Condition: stable Disposition: PACU Description of Procedure: The patient's placed on the operating table in the supine position. She received general anesthesia. Her right chest was prepped and draped usual st erile fashion. The skin incision was incised and. Scar. Using blunt and sharp dissection and electrocautery the Port-A-Cath was found. The Port-A-Cath was rotated 180. This point the Port-A-Cath was removed. The right subclavian vein was fine and using the Seldinger technique. The wire was placed through the needle into the vein. Position of the wire was confirmed with fluoroscopy to be in the superior vena cava. At this point the introducer sheath was placed over top the wire and the catheter was placed through the sheath. The distal and the catheter was placed on the tunneling device this was brought out towards the sternum. The catheter was positioned appropriately into the superior vena cava. The catheter was then cut and then connected to the Port-A-Cath. The Port-A-Cath pocket was created just to the right side of the sternum. There was less fat in this area. Patient's morbid obesity BMI 44. Catheter was then flushed with heparinized saline. Patient top she will well. The skin was closed interrupted 3-0 Monocryl suture. Dermabond was applied. Patient top she will was sent to recovery room in stable condition.
[2021-07-27] MEDS: HYDROmorphone 0.5 MG/0.5 ML SYRINGE IVP PRN ×2 (13:55→14:01)
--- NOTE | 2021-07-27 14:16 | XR ---
EXAMINATION TYPE: XR chest 1V portable DATE OF EXAM: 07/27/2021 COMPARISON: 07/13/2021 INDICATION: Medipor TECHNIQUE: Single frontal view of the chest is obtained. FINDINGS: The heart size is normal. The pulmonary vasculature is normal. Some minimal perihilar lung markings are present. Some mild infiltrate medially at the left base. Cor relate for subsegmental atelectasis. Displacement of Mediport on the right with the tip in the superior vena cava region. IMPRESSION: 1. There may be some increased central lung markings present previously. 2. Mild subsegmental atelectasis should be suspected at the left lung base. 3. Mediport present with the tip in the superior vena cava region. No pneumothorax is evident.
[2021-07-27 14:36] VITALS: RESP 17
[2021-07-27 14:49] VITALS: BP 104/69; PULSE 70
== END 2021-07-27 15:28 | disposition home or self-care (01) ==
LOC: OR 10:11
PROVIDERS: ATTEND Surgery
DX: Z45.2 Encounter for adjustment and management of vascular access device (principal); E78.5 Hyperlipidemia, unspecified; J45.909 Unspecified asthma, uncomplicated; M19.90 Unspecified osteoarthritis, unspecified site; Z85.038 Personal history of other malignant neoplasm of large intestine; Z86.16 Personal history of COVID-19; Z87.891 Personal history of nicotine dependence; Z88.0 Allergy status to penicillin; Z90.49 Acquired absence of other specified parts of digestive tract
CPT/HCPCS: 36582; 81025; 77001; 71045; C1788; C1769; J2250; J2405; J3010; J1642; J0330; J2704; J1170; Q9967; J1644; J2001

== ENCOUNTER → 2021-11-01 | Outpatient (CLI) | payer BC ==
[2021-11-01 10:48] LABS: African American GFR (CKD) >90 (>60 ml/min/1.73 sqM); Blood Urea Nitrogen 11 mg/dL (7-17); Non-African American GFR(CKD) >90 (>60 ml/min/1.73 sqM)
--- NOTE | 2021-11-01 12:17 | CT ---
EXAMINATION TYPE: CT ChestAbdPelvis w con CT DLP: 2527 mGycm, Automated exposure control for dose reduction was used. DATE OF EXAM: 11/01/2021 11:51 AM COMPARISON: PET CT 07/15/2021, CT abdomen pelvis 05/09/2021. CLINICAL INDICATION:Female, 50 years old with history of C18.6 COLON CANCER; , Colon CA Technique: Multiple axial images of the chest, abdomen, and pelvis were obtained. Two-dimensional cor onal and sagittal reconstructions were obtained. Contrast used:70 mL of Isovue 300 with IV Contrast, Oral contrast used: with Oral Contrast Findings: CHEST: LUNGS/ PLEURA: Motion artifact limits evaluation of the parenchyma. The lung parenchyma appears unrem arkable. AIRWAY: Patent and unremarkable. HEART: Size within normal limits. MEDIASTINUM: No gross evidence of adenopathy. VASCULATURE: No aortic aneurysm. MUSCULOSKELETAL: No acute osseous abnormalities. SOFT TISSUES/LYMPH NODES: Right chest wall [id number] with distal tip within the superior vena cav a. LOWER NECK: No significant findings. ABDOMEN: ABDOMEN LIVER: Redemonstration of multiple hypoattenuating lesions consistent with known metastatic disease t hroughout the liver. Comparison to prior PET scan without IV contrast is limited. The lesions do appe ar smaller in size on today's exam example includes right hepatic lobe segment 4A 19 x 17 mm lesion p reviously 27 x 25 mm, right lateral hepatic lobe measuring 29 x 15 mm, previously 51 x 38 mm on 022. Additional lesions which are more conspicuous are also felt to be smaller compared to 05/09/2021 a nd 07/15/2021 PET. GALLBLADDER AND BILE DUCTS: The gallbladder surgically absent. PANCREAS: Unremarkable. SPLEEN: Unremarkable. ADRENAL GLANDS: Unremarkable. KIDNEYS AND URETERS: No evidence of hydronephrosis or renal calculus. The ureters are unremarkable. PELVIS BLADDER: Unremarkable REPRODUCTIVE: Unremarkable. ABDOMEN & PELVIS STOMACH AND BOWEL: No evidence of bowel obstruction. Postsurgical changes to the colon. The appendix is normal. Large fecal burden within the rectum. PERITONEUM: No evidence of pneumoperitoneum or free fluid. VASCULATURE: No evidence of aortic aneurysm. MUSCULOSKELETAL: No acute osseous abnormalities LYMPH NODES: No gross evidence for lymphadenopathy. SOFT TISSUE/ABDOMINAL WALL: Unremarkable IMPRESSION: 1. Limited evaluation of multiple hepatic lesions secondary to single phase of contrast study. The v isualized lesions overall appear grossly smaller than prior noncontrast PET/CT and prior CT abdomen p manuel 05/09/2021. Attention on follow-up PET/CT. 2. No lymphadenopathy seen within the abdomen or pelvis.
== END | disposition home or self-care (01) ==
LOC: RADPROMAIN 09:20
PROVIDERS: ATTEND Internal Medicine Hematology & Oncology
DX: C18.6 Malignant neoplasm of descending colon (principal); K76.9 Liver disease, unspecified
CPT/HCPCS: 82565; 84520; 71260; 74177; 36415; J1642; Q9967

== ENCOUNTER → 2022-01-12 | Outpatient (CLI) | payer BC ==
[2022-01-12 10:55] LABS: African American GFR (CKD) >90 (>60 ml/min/1.73 sqM); Blood Urea Nitrogen 13 mg/dL (7-17); Non-African American GFR(CKD) >90 (>60 ml/min/1.73 sqM)
--- NOTE | 2022-01-12 12:36 | CT ---
EXAMINATION TYPE: CT ChestAbdPelvis w con CT DLP: 2522.4 mGycm, Automated exposure control for dose reduction was used. DATE OF EXAM: 01/12/2022 12:11 PM COMPARISON: CT chest abdomen and pelvis 11/01/2021. CLINICAL INDICATION:Female, 51 years old with history of C18.6 COLON CANCER; PHH, colon ca Technique: Multiple axial images of the chest, abdomen, and pelvis were obtained following the intrav enous administration of 70 cc Isovue-300. Oral contrast administered. Two-dimensional coronal and sag ittal reconstructions were obtained. Findings: CHEST: LUNGS/ PLEURA: No pneumothorax, pleural effusion, focal consolidation. No suspicious pulmonary nodule s or masses. AIRWAY: Patent and unremarkable.. HEART: Size within normal limits. Trace pericardial fluid. MEDIASTINUM: No gross evidence of adenopathy. VASCULATURE: No aortic aneurysm. Right chest wall Mediport catheter with tip terminating in the supe rior cavoatrial junction. MUSCULOSKELETAL: No acute osseous abnormalities. No aggressive osseous lesions. SOFT TISSUES/LYMPH NODES: Unremarkable. LOWER NECK: No significant findings. ABDOMEN: ABDOMEN LIVER: Evaluation is limited due to single phase study. Redemonstration of multiple hypoattenuating l esions consistent with known metastatic disease to the liver. Largest is within the inferior right he patic lobe measuring up to 3.5 cm overall the lesions appear stable to marginally smaller size from p rior examination when measured with similar technique. GALLBLADDER AND BILE DUCTS: Postcholecystectomy. No biliary duct dilatation. PANCREAS: Unremarkable. SPLEEN: Mildly enlarged spleen measuring 14.2 cm in craniocaudal dimension. ADRENAL GLANDS: Unremarkable. KIDNEYS AND URETERS: No evidence of hydronephrosis or renal calculus. The kidneys enhance symmetrical ly without suspicious focal lesion. PELVIS BLADDER: Incompletely distended but grossly unremarkable. REPRODUCTIVE: Unremarkable. ABDOMEN & PELVIS STOMACH AND BOWEL: Stomach and duodenum are unremarkable. The appendix is within normal limits. Posts urgical changes to the colon with anastomosis within the anterior lower abdomen. No surrounding soft tissue to suggest recurrence. No evidence of bowel obstruction. PERITONEUM: No evidence of pneumoperitoneum or free fluid. No definitive omental implants. VASCULATURE: No evidence of aortic aneurysm. MUSCULOSKELETAL: No acute osseous abnormalities. No aggressive osseous lesions. Degenerative changes most pronounced at L5-S1 with disc space narrowing, endplate sclerosis, and anterior osteophytosis. LYMPH NODES: No gross evidence for lymphadenopathy. SOFT TISSUE/ABDOMINAL WALL: Postsurgical changes of the intra-abdominal wall with small fat filled in cisional hernia. IMPRESSION: 1. Limited examination of multiple hepatic lesions secondary to single phase of contrast study. The v isualized lesions appear stable to marginally smaller in size on prior CT examination. 2. No evidence for thoracic metastasis or CT evidence for local recurrence within the abdomen and pel vis. 3. No lymphadenopathy within the chest, abdomen and pelvis. 4. Mild splenomegaly.
== END | disposition home or self-care (01) ==
LOC: RADCTMAIN 09:50
PROVIDERS: ATTEND Internal Medicine Hematology & Oncology
DX: C18.6 Malignant neoplasm of descending colon (principal); R16.1 Splenomegaly, not elsewhere classified
CPT/HCPCS: 82565; 84520; 71260; 74177; 36415; Q9967

== ENCOUNTER → 2022-05-25 | Outpatient (CLI) | payer BC ==
--- NOTE | 2022-05-25 13:45 | XR ---
EXAMINATION TYPE: XR shoulder complete 3 views LT DATE OF EXAM: 05/25/2022 Comparison: None Clinical History: 51-year-old female M25.512 Findings: AC joint appears intact. Subacromial space is preserved. No tendinous or bursal calcifications. No ac huslia fracture, subluxation, dislocation. Visualized left hemithorax appears clear. Impression: No acute osseous abnormality seen.
== END | disposition home or self-care (01) ==
LOC: RADXRMAIN 09:59
PROVIDERS: ATTEND Family Medicine
DX: M25.512 Pain in left shoulder (principal)

== ENCOUNTER 2022-06-01 08:53 | Day surgery (SDC) | payer BC ==
[2022-05-30 14:30] VITALS: BMI 42.2
[~2022-06-01 08:53] MED LIST changes: -ACETAMINOPHEN TAB 500 MG TAB PO PRN; -HEPARIN SODIUM,PORCINE/PF 5,000 UNIT/0.5 ML SYRINGE SQ PRN; -ONDANSETRON 4 MG/2 ML VIAL IVP ONE; -ceFAZolin 3 GM in SODIUM CHLORIDE 0.9% 100 ML IVPB PRN
[2022-06-01 09:15] VITALS: TEMP 97
[2022-06-01] MEDS ORDERED: ONDANSETRON 4 MG/2 ML VIAL ONE (09:25)
[2022-06-01] MEDS ORDERED: PROPOFOL 10 MG/ML 20 ML VIAL IV ONE (09:29)
--- NOTE | 2022-06-01 09:31 | P.GSHP ---
History of Present Illness H&P Date: 06/01/22 Chief Complaint: History of colon cancer This a 51-year-old female with previous history of colon cancer. Patient presents today for colonoscopy. Past Medical History Past Medical History: Asthma, Cancer, GERD/Reflux, Osteoarthritis (OA), Thyroid Disorder Additional Past Medical History / Comment(s): Hx Covid 03/22/21. Migraines. "Genetic Arrythmia, had work up, no concerns." Current colon cancer. History of Any Multi-Drug Resistant Organisms: None Reported Past Surgical History: Bowel Resection, Cholecystectomy, Tubal Ligation Additional Past Surgical History / Comment(s): EGD, colonoscopy, 05/12/21 colectomy, port a catheter insertion/REPLACED Past Anesthesia/Blood Transfusion Reactions: Previous Problems w/ Anesthesia, Motion Sickness Additional Past Anesthesia/Blood Transfusion Reaction / Comment(s): Slow to wake up. Smoking Status: Former smoker - Past Family History Father Family Medical History: Cancer, Pulmonary Embolus Additional Family Medical History / Comment(s): lung cancer Mother Family Medical History: Cancer Additional Family Medical History / Comment(s): cysts in breasts Medications and Allergies Home Medications Medication Instructions Recorded Confirmed Type Albuterol Inhaler [Ventolin Hfa 1 - 2 puff INHALATION RT-Q6H PRN 04/13/21 History Inhaler] Gabapentin [Neurontin] 200 mg PO QAM 04/13/21 05/30/22 History Levothyroxine Sodium [Synthroid] 50 mcg PO QAM 04/13/21 05/30/22 History Pantoprazole [Protonix] 40 mg PO QAM 04/13/21 05/30/22 History Doxycycline [Vibramycin] 100 mg PO BID 11/23/21 05/30/22 History Capecitabine 500mg 2,500 mg PO DIRECTED 04/21/22 05/30/22 History Docusate [Colace] 100 - 200 mg PO BID 04/21/22 05/30/22 History Gabapentin [Neurontin] 100 mg PO HS 04/21/22 05/30/22 History Allergies Allergy/AdvReac Type Severity Reaction Status Date / Time Parmer And Derivatives Allergy Itching Verified 06/01/22 09:06 [Parmer] Penicillins Allergy Dyspnea Verified 06/01/22 09:06 prednisone Allergy Rash/Hives Verified 06/01/22 09:06 Surgical - Exam Vital Signs Temp Pulse Resp BP Pulse Ox 97.0 F L 101 H 16 136/63 100 06/01/22 09:13 06/01/22 09:13 06/01/22 09:13 06/01/22 09:13 06/01/22 09:13 - General well developed, well nourished, no distress - Eyes PERRL - ENT normal pinna - Neck no masses - Respiratory normal expansion - Cardiovascular Rhythm: regular - Abdomen Abdomen: soft, non tender Assessment and Plan Assessment: History of colon cancer. We'll perform colonoscopy.
--- NOTE | 2022-06-01 09:47 | P.OP ---
Date of Procedure: 06/01/22 Preoperative Diagnosis: History of colon cancer Postoperative Diagnosis: Colon polyp Internal and external hemorrhoids Procedure(s) Performed: Colonoscopy Anesthesia: MAC Surgeon: Moody Guevara Pathology: other (Colon polyp) Condition: stable Disposition: PACU Description of Procedure: The patient's placed on the endoscopy table in the lateral position. She received IV sedation. Digital rectal exam performed. This revealed internal and external hemorrhoids. The flexible colonoscope was then placed patient anus and passed throughout the entire colon. The ileocecal valve was visualized. The cecum, ascending and transverse colon normal. The descending colon.. Patient a previous colon resection. The colorectal anastomosis visualized. Just distal to the anastomosis was a marker large pedunculated polyp. This removed with snare. Scope was brought back the rectum and this appeared normal. Scope withdrawn for patient. In there was internal and external hemorrhoids noted. The patient tolerated procedure well.
[2022-06-01 10:07] VITALS: RESP 16
[2022-06-01 10:25] VITALS: BP 113/73; PULSE 70
== END 2022-06-01 10:43 | disposition home or self-care (01) ==
LOC: ORWHC2ENDO 08:53
PROVIDERS: ATTEND Surgery
DX: Z12.11 Encounter for screening for malignant neoplasm of colon (principal); K91.89 Other postprocedural complications and disorders of digestive system; D12.6 Benign neoplasm of colon, unspecified; C18.9 Malignant neoplasm of colon, unspecified; K64.4 Residual hemorrhoidal skin tags; K64.8 Other hemorrhoids; Z90.49 Acquired absence of other specified parts of digestive tract; Z98.0 Intestinal bypass and anastomosis status; J45.909 Unspecified asthma, uncomplicated; M19.90 Unspecified osteoarthritis, unspecified site; K21.9 Gastro-esophageal reflux disease without esophagitis; Z86.16 Personal history of COVID-19; G43.909 Migraine, unspecified, not intractable, without status migrainosus; Z88.0 Allergy status to penicillin; Z88.8 Allergy status to other drugs, medicaments and biological substances; Z98.51 Tubal ligation status; Z98.890 Other specified postprocedural states; Z87.891 Personal history of nicotine dependence; Z80.1 Family history of malignant neoplasm of trachea, bronchus and lung; Z83.2 Family history of diseases of the blood and blood-forming organs and certain disorders involving the immune mechanism; Z79.51 Long term (current) use of inhaled steroids; Z79.890 Hormone replacement therapy; Z79.899 Other long term (current) drug therapy
CPT/HCPCS: 45385; J2405; J2704; 88305

== ENCOUNTER → 2022-07-20 | Outpatient (CLI) | payer BC ==
[2022-07-20 12:44] LABS: African American GFR (CKD) >90 (>60 ml/min/1.73 sqM); Blood Urea Nitrogen 12 mg/dL (7-17); Non-African American GFR(CKD) >90 (>60 ml/min/1.73 sqM)
--- NOTE | 2022-07-20 16:54 | CT ---
EXAMINATION TYPE: CT ChestAbdPelvis w con DATE OF EXAM: 07/20/2022 INDICATION: obs for mets,. hx colon ca, COMPARISON: 05/04/2022 CT DLP: 2874.0 mGycm CONTRAST: Performed with Oral Contrast and with IV Contrast, patient injected with 100 mL of Isovue 300. TECHNIQUE: Axial images at 5 mm thick sections. Reconstructed images in the coronal plane. Delayed images through the kidneys. FINDINGS: CT CHEST: Portion of the thyroid visualized is normal. No suspicious lung nodules or focal infiltrates are present. No enlarged mediastinal or hilar adenopathy is evident. The ascending aorta diameter at the level of the main pulmonary artery is 3.5 cm. The main pulmonary artery diameter at the bifurcation is 3.[address] ABDOMEN: Liver: Patient's known hepatic metastasis not clearly evident. There is some faint ill-defined hypode nsity within the inferior lateral right lobe liver. This poor visualization is further complicated by beam hardening artifact from the patient's left arm. Spleen: Craniocaudal dimension is 14.4 cm which is slightly enlarged. Normal less than 12.5 cm. Pancreas: Normal Adrenal glands: The adrenal glands are normal. Gallbladder: Surgically absent Kidneys: No masses are evident. No hydronephrosis is present. No cysts are present. Delayed images were obtained through the kidneys, which remain unremarkable. Aorta: Normal Inferior vena cava: Normal. CT PELVIS: Loops of bowel within the abdomen and pelvis are normal. There is prior partial colectomy. The anasto mosis of the transverse of the sigmoid colon is widely patent and filled with fecal debris. There are loops of bowel which are incompletely distended or lack oral contrast limiting their evaluation. Appendix: Normal as visualized. Urinary bladder: Normal. Genitourinary structures: Uterus is unremarkable. Adnexa are normal. No free fluid is present. Osseous structures: No suspicious lytic or sclerotic lesions. IMPRESSIONS: 1. Patient's known hepatic metastasis poorly visualized and poorly demonstrated on this examination. 2. Mild splenomegaly.
== END | disposition home or self-care (01) ==
LOC: RADCTMAIN 12:05
PROVIDERS: ATTEND Internal Medicine Hematology & Oncology
DX: Z03.89 Encounter for observation for other suspected diseases and conditions ruled out (principal); C18.6 Malignant neoplasm of descending colon; C78.7 Secondary malignant neoplasm of liver and intrahepatic bile duct; R16.1 Splenomegaly, not elsewhere classified
CPT/HCPCS: 82565; 84520; 71260; 74177; 36415; Q9967

== ENCOUNTER → 2022-10-12 | Outpatient (CLI) | payer BC ==
[2022-10-12 14:32] LABS: African American GFR (CKD) >90 (>60 ml/min/1.73 sqM); Blood Urea Nitrogen 12 mg/dL (7-17); Non-African American GFR(CKD) >90 (>60 ml/min/1.73 sqM)
--- NOTE | 2022-10-13 08:23 | CT ---
EXAMINATION TYPE: CT ChestAbdPelvis w con DATE OF EXAM: 10/12/2022 INDICATION: f/u colon ca COMPARISON: 07/20/2022 CT DLP: 3374.4 mGycm CONTRAST: Performed with Oral Contrast and with IV Contrast, patient injected with 100 mL of Isovue 300. TECHNIQUE: Axial images at 5 mm thick sections. Reconstructed images in the coronal plane. Delayed images through the kidneys. FINDINGS: CT CHEST: Portion of the thyroid visualized is normal. No suspicious lung nodules or focal infiltrates are present. No enlarged mediastinal or hilar adenopathy is evident. The ascending aorta diameter at the level of the main pulmonary artery is 3.4 cm. The main pulmonary artery diameter at the bifurcation is 3.[address] ABDOMEN: Liver: Normal Spleen: Normal Pancreas: Normal Adrenal glands: The adrenal glands are normal. Gallbladder: Surgically absent Kidneys: No masses are evident. No hydronephrosis is present. No cysts are present. Delayed images were obtained through the kidneys, which remain unremarkable. Aorta: Normal Inferior vena cava: Normal. CT PELVIS: Loops of bowel within the abdomen and pelvis are normal. There are loops of bowel which are incom pletely distended or lack oral contrast limiting their evaluation. There is an anastomosis within the colon medial right abdomen this appears to be within the transverse to sigmoid colon. Appendix: There is some mild inflammatory changes in the right lower quadrant and in the right paraco lic gutter. The appendix is not identified. A dilated tubular structures not identified. Findings are nonspecific. Clinical management of any suspect appendicitis is recommended. Correlate with the tesfaye ent's surgical history. Urinary bladder: Normal. Genitourinary structures: Uterus is normal. Adnexa are unremarkable. Osseous structures: No suspicious lytic or sclerotic lesions. IMPRESSIONS: 1. There may be some mild nonspecific inflammatory changes right lower quadrant and right paracolic g utter. A suspicious appendix is not identified. Suspicious changes within the residual bowel is not e vident. Clinical management recommended. 2. No suspicious changes to suggest recurrent or metastatic colon cancer
== END | disposition home or self-care (01) ==
LOC: RADCTMAIN 13:48
PROVIDERS: ATTEND Internal Medicine Hematology & Oncology
DX: C18.6 Malignant neoplasm of descending colon (principal); E03.9 Hypothyroidism, unspecified; R21 Rash and other nonspecific skin eruption; R16.0 Hepatomegaly, not elsewhere classified; Z71.3 Dietary counseling and surveillance
CPT/HCPCS: 82565; 84520; 71260; 74177; 36415; Q9967

== ENCOUNTER 2022-11-07 08:50 | Inpatient (IN) | payer BC ==
[2022-11-02 09:04] VITALS: BMI 44.4
[~2022-11-07 08:50] MED LIST changes: +ACETAMINOPHEN TAB 500 MG TAB PO PRN; +HEPARIN SODIUM,PORCINE/PF 5,000 UNIT/0.5 ML SYRINGE SQ PRN; -LACTATED RINGERS 1,000 ML IV SCH; -LIDOCAINE 1% (10MG/ML) FOR IV START INTRADERMA PRN; +ceFAZolin 3 GM in SODIUM CHLORIDE 0.9% 100 ML IVPB PRN; +metroNIDAZOLE-NS PMX 500 MG in SALINE 1 100ML.BAG IVPB PRN
[2022-11-07] MEDS ORDERED: LIDOCAINE 1% (10MG/ML) FOR IV START INTRADERMA PRN (09:17)
[2022-11-07] MEDS ORDERED: droPERidol 5 MG/2 ML VIAL IVP ONE (09:17)
[2022-11-07] MEDS ORDERED: ONDANSETRON 4 MG/2 ML VIAL IVP ONE (09:17)
[2022-11-07] MEDS: LACTATED RINGERS 1,000 ML IV SCH (09:40)
--- NOTE | 2022-11-07 10:32 | P.GSHP ---
History of Present Illness H&P Date: 11/07/22 Chief Complaint: Right lower quadrant pain, chronic appendicitis This 51-year-old female who's had complete the right lower quadrant pain. Her recent CAT scan suspicious for appendicitis. Patient's appendicitis the past. She's had complaints of intermittent right lower quadrant pain. Patient's previous history of left colon cancer. Past Medical History Past Medical History: Asthma, Cancer, Hyperlipidemia, Osteoarthritis (OA), T hyroid Disorder Additional Past Medical History / Comment(s): Hx Covid 03/22/21. Migraines. "Genetic Arrythmia, had work up, no concerns." Current colon cancer-HAD CHEMO 10/17/22, APPENDICITIS History of Any Multi-Drug Resistant Organisms: None Reported Past Surgical History: Bowel Resection, Cholecystectomy, Tubal Ligation Additional Past Surgical History / Comment(s): EGD, colonoscopy, 05/12/21 colectomy, port a catheter insertion. Past Anesthesia/Blood Transfusion Reactions: Previous Problems w/ Anesthesia, Motion Sickness Additional Past Anesthesia/Blood Transfusion Reaction / Comment(s): Slow to wake up. Smoking Status: Former smoker - Past Family History Father Family Medical History: Cancer, Pulmonary Embolus Additional Family Medical History / Comment(s): lung cancer Mother Family Medical History: No Reported History Additional Family Medical History / Comment(s): cysts in breasts Medications and Allergies Home Medications Medication Instructions Recorded Confirmed Type Albuterol Inhaler [Ventolin Hfa 1 - 2 puff INHALATION RT-Q6H PRN 04/13/21 11/02/22 History Inhaler] Gabapentin [Neurontin] 200 mg PO QAM 04/13/21 11/02/22 History Levothyroxine Sodium [Synthroid] 50 mcg PO QAM 04/13/21 11/02/22 History Pantoprazole [Protonix] 40 mg PO QAM 04/13/21 11/02/22 History Doxycycline [Vibramycin] 100 mg PO BID 11/23/21 11/02/22 History Capecitabine 500mg 2,500 mg PO DIRECTED 04/21/22 11/02/22 History Docusate [Colace] 100 - 200 mg PO BID 04/21/22 11/02/22 History Gabapentin [Neurontin] 100 mg PO HS 04/21/22 11/02/22 History Acetaminophen [Tylenol Extra 1,000 mg PO DAILY PRN 11/02/22 11/02/22 History Strength] Allergies Allergy/AdvReac Type Severity Reaction Status Date / Time [place] And Derivatives Allergy Itching Verified 11/07/22 09:23 [[place]] Penicillins Allergy Dyspnea Verified 11/07/22 09:23 prednisone Allergy Rash/Hives Verified 11/07/22 09:23 Surgical - Exam Vital Signs Temp Pulse Resp BP Pulse Ox 97.4 F L 84 16 141/85 97 11/07/22 09:35 11/07/22 09:35 11/07/22 09:35 11/07/22 09:35 11/07/22 09:35 - General well developed, well nourished, no distress - Eyes PERRL - ENT normal pinna - Neck no masses - Respiratory normal expansion - Cardiovascular Rhythm: regular - Abdomen Mild right lower quadrant tenderness Abdomen: soft Assessment and Plan Assessment: Chronic incised. We'll perform laparoscopic appendectomy. Patient's aware of the risk of adhesions.
[2022-11-07] MEDS ORDERED: PROPOFOL 10 MG/ML 20 ML VIAL IV ONE (10:43)
[2022-11-07] MEDS ORDERED: NEOSTIGMINE 1 MG/ML 10 ML VIAL ONE (10:43)
[2022-11-07] MEDS ORDERED: MIDAZOLAM 2 MG/2 ML VIAL ONE (10:43)
[2022-11-07] MEDS ORDERED: GLYCOPYRROLATE 0.2 MG/ML 2 ML VIAL ONE (10:43)
[2022-11-07] MEDS ORDERED: ROCURONIUM 10 MG/ML (5 ML VIAL) IV ONE (10:43)
[2022-11-07] MEDS ORDERED: fentaNYL (PF) 50 MCG/ML 2 ML AMP ONE (10:43)
[2022-11-07] MEDS ORDERED: HYDROmorphone (PF) 1 MG/ML ONE (10:43)
[2022-11-07] MEDS ORDERED: SUCCINYLCHOLINE CHLORIDE 200 MG/10 ML VIAL IV ONE (10:43)
[2022-11-07] MEDS ORDERED: LIDOCAINE 2% INJ 20 MG/ML (2 ML VIAL) ONE (10:43)
[2022-11-07] MEDS ORDERED: ONDANSETRON 4 MG/2 ML VIAL ONE (10:43)
[2022-11-07] MEDS ORDERED: LIDOCAINE 1%-EPI 1:100,000 50 ML VIAL SQ ONE ×2 (11:12)
[2022-11-07] MEDS ORDERED: LACTATED RINGERS 1,000 ML IV ONE ×2 (12:42→12:45)
--- NOTE | 2022-11-07 12:43 | P.OP ---
Date of Procedure: 11/07/22 Preoperative Diagnosis: Acute appendicitis Postoperative Diagnosis: Extensive adhesions Incisional hernia Chronic appendicitis Procedure(s) Performed: Exploratory laparotomy Lysis of adhesions extensive Repair of incisional hernia Appendectomy Repair of small bowel enterotomy Anesthesia: SILVINA Surgeon: Moody Guevara Estimated Blood Loss (ml): 300 Pathology: other (Appendix) Condition: stable Disposition: PACU Operative Findings: Extensive intra-abdominal adhesions Description of Procedure: The patient's placed the operative table in the supine position. She received general endotracheal tube anesthesia. Her abdomen was prepped and draped usual fashion. Patient had a previous midline scar. Due to this a Veress needles placed in the left upper quadrant. The abdomen was insufflated. After adequate insufflation a 5 ohmmeter optical trochars placed under direct vision into the pleural cavity. There were extensive adhesions noted throughout the peritoneal cavity. At this point decided to perform an open procedure. The abdomen was desufflated. The skin was incised along the midline. The fascia was opened. There were extensive adhesions between small bowel and the abdominal wall and small bowel loops. Approximate 45 minutes operative time used to lyse adhesions. The small bowel was adhered to the false from ligament.. During the takedown of this adhesion. There was no enterotomy. This was repaired using 3- 0 GI silk suture. The serosal surfaces were very oozy. There was a general ooze from the lysis of adhesions. There was no significant vascular bleeding. However there was a continuous is from the raw peritoneal surfaces. The appendix was then visualized. There appeared to be some chronic scarring around the appendix. The mesoappendix was taken with the Enseal device. And then the base the appendix was ligated with the Endoloop. The appendix was then transected with the Enseal device and sent to pathology. The abdomen was then irrigated with 3 L of normal saline. No significant bleeding was seen. The fascia was then closed with looped #1 PDS suture. 2 sutures used to close the fascia. The skin was then closed kaleb. The Prevenat was applied on the closed kaleb incisions. Patient was sent to recovery in stable condition.
[2022-11-07] MEDS ORDERED: NALOXONE 0.4 MG/ML 1 ML VIAL IV PRN (12:45)
[2022-11-07] MEDS ORDERED: ONDANSETRON 4 MG/2 ML VIAL IVP PRN (12:45)
[2022-11-07] MEDS ORDERED: HYDROmorphone 1 MG/ML 1 ML SYRINGE IVP PRN (12:45)
[2022-11-07] MEDS ORDERED: SODIUM CHLORIDE 0.9% 1,000 ML IV ONE ×2 (13:25→15:36)
[2022-11-07 13:53] LABS: Glucose,Whole Blood 113 mg/dL (70-110)
[2022-11-07] MEDS: HYDROmorphone 0.5 MG/0.5 ML SYRINGE IVP PRN ×2 (15:00→15:09)
[2022-11-07] MEDS: KETOROLAC 15 MG/ML 1 ML VIAL IVP SCH ×2 (17:53→23:16)
[2022-11-08] MEDS: KETOROLAC 15 MG/ML 1 ML VIAL IVP SCH ×3 (06:29→18:29)
--- NOTE | 2022-11-08 08:20 | P.CONS ---
History of Present Illness - Reason for Consult Consult date: 11/08/22 Medical management - Chief Complaint Appendicitis - History of Present Illness This is a 51-year-old white female with known history of colon cancer who ended up having court-ordered laparotomy. We had seen for medical management underlying history of hyperlipidemia and asthma which is stable. No chest pain. Postop abdominal pain she is passing flatus. Review of Systems Constitutional: Denies chills, Denies fever Eyes: denies blurred vision, denies pain Ears, nose, mouth and throat: Denies headache, Denies sore throat Cardiovascular: Denies chest pain, Denies shortness of breath Respiratory: Denies cough Gastrointestinal: Reports as per HPI Genitourinary: Denies dysuria, Denies hematuria Integumentary: Denies pruritus, Denies rash Past Medical History Past Medical History: Asthma, Cancer, Hyperlipidemia, Osteoarthritis (OA), Thyroid Disorder Additional Past Medical History / Comment(s): Hx Covid 03/22/21. Migraines. "Genetic Arrythmia, had work up, no concerns." Current colon cancer-HAD CHEMO 10/17/22, APPENDICITIS History of Any Multi-Drug Resistant Organisms: None Reported Past Surgical History: Bowel Resection, Cholecystectomy, Tubal Ligation Additional Past Surgical History / Comment(s): EGD, colonoscopy, 05/12/21 col ectomy, port a catheter insertion. Past Anesthesia/Blood Transfusion Reactions: Previous Problems w/ Anesthesia, Motion Sickness Additional Past Anesthesia/Blood Transfusion Reaction / Comm: Slow to wake up. Smoking Status: Former smoker - Past Family History Father Family Medical History: Cancer, Pulmonary Embolus Additional Family Medical History / Comment(s): lung cancer Mother Family Medical History: No Reported History Additional Family Medical History / Comment(s): cysts in breasts Medications and Allergies Home Medications Medication Instructions Recorded Confirmed Type Albuterol Inhaler [Ventolin Hfa 1 - 2 puff INHALATION RT-Q6H PRN 04/13/21 11/02/22 History Inhaler] Gabapentin [Neurontin] 200 mg PO QAM 04/13/21 11/02/22 History Levothyroxine Sodium [Synthroid] 50 mcg PO QAM 04/13/21 11/02/22 History Pantoprazole [Protonix] 40 mg PO QAM 04/13/21 11/02/22 History Doxycycline [Vibramycin] 100 mg PO BID 11/23/21 11/02/22 History Capecitabine 500mg 2,500 mg PO DIRECTED 04/21/22 11/02/22 History Docusate [Colace] 100 - 200 mg PO BID 04/21/22 11/02/22 History Gabapentin [Neurontin] 100 mg PO HS 04/21/22 11/02/22 History Acetaminophen [Tylenol Extra 1,000 mg PO DAILY PRN 11/02/22 11/02/22 History Strength] Allergies Allergy/AdvReac Type Severity Reaction Status Date / Time [place] And Derivatives Allergy Itching Verified 11/07/22 09:23 [[place]] Penicillins Allergy Dyspnea Verified 11/07/22 09:23 prednisone Allergy Rash/Hives Verified 11/07/22 09:23 Physical Exam Vitals: Vital Signs Temp Pulse Resp BP Pulse Ox 11/08/22 07:58 98.0 F 109 H 17 106/72 92 L 11/08/22 00:22 97.7 F 107 H 19 116/80 90 L 11/07/22 19:18 97.5 F L 100 18 136/81 97 11/07/22 17:57 97.8 F 101 H 17 113/72 97 11/07/22 16:24 87 16 111/65 98 11/07/22 15:54 97 18 98/67 97 11/07/22 15:24 89 18 111/57 99 11/07/22 14:54 83 26 H 93/65 97 11/07/22 14:39 82 22 103/58 94 L 11/07/22 14:24 83 26 H 111/53 97 11/07/22 14:09 82 22 103/51 97 11/07/22 13:54 84 30 H 117/67 96 11/07/22 13:39 87 30 H 108/57 96 11/07/22 13:24 90 26 H 105/55 95 11/07/22 13:08 94 26 H 105/65 94 L 11/07/22 12:53 97.7 F 100 20 98/56 93 L 11/07/22 09:35 97.4 F L 84 16 141/85 97 Intake and Output 11/07/22 11/08/22 11/08/22 22:59 06:59 14:59 Intake Total 400 Output Total 0 Balance 400 Intake: IV 400 Output: Urine 0 Stool 0 Other: # Voids 1 Weight 129.1 kg - Constitutional General appearance: obese - EENT Eyes: EOMI - Neck Neck: no lymphadenopathy - Respiratory Respiratory: bilateral: diminished - Cardiovascular Rhythm: regular Heart sounds: normal: S1, S2 Abnormal Heart Sounds: no S3 Gallop - Gastrointestinal General gastrointestinal: decreased bowel sounds, soft - Integumentary Integumentary: no cellulitis - Psychiatric Psychiatric: A&O x's 3 Results Labs: Abnormal Lab Results - Last 24 Hours (Table) 11/07/22 Range/Units 13:52 POC Glucose (mg/dL) 113 H (70-110) mg/dL Assessment and Plan (1) Chronic appendicitis Current Visit: Yes Status: Acute Code(s): K36 - OTHER APPENDICITIS SNOMED Code(s): 80799594 (2) Abdominal pain Current Visit: No Status: Acute Priority: High Code(s): R10.9 - UNSPECIFIED ABDOMINAL PAIN SNOMED Code(s): 32164161 (3) Adenocarcinoma of colon metastatic to liver Current Visit: No Status: Acute Priority: High Code(s): C18.9 - MALIGNANT NEOPLASM OF COLON, UNSPECIFIED; C78.7 - SECONDARY MALIG NEOPLASM OF LIVER AND INTRAHEPATIC BILE DUCT SNOMED Code(s): 5949479459 Plan: Postop pulmonary toilet. New patch check CBC and CMP in a.m. Reconcile medications. The patient seems to be tolerating clear liquids. Prognosis guarded secondary to her overall comorbid diagnoses. The patient seems to be recovering well however. Appreciate consultation.
[2022-11-08] MEDS: LEVOTHYROXINE 50 MCG TAB PO SCH (08:38)
[2022-11-08] MEDS: PANTOPRAZOLE 40 MG TABLET PO SCH (08:38)
[2022-11-08] MEDS: GABAPENTIN 100 MG CAP PO SCH ×2 (08:38→20:35)
[2022-11-08] MEDS: ENOXAPARIN 40 MG/0.4 ML SYRINGE SQ SCH ×2 (08:38→08:42)
[2022-11-08] MEDS: LACTATED RINGERS 1,000 ML IV SCH ×3 (08:50→20:36)
[2022-11-08] MEDS ORDERED: SODIUM CHLORIDE 0.9% 1,000 ML IV ONE (10:13)
[2022-11-08 11:20] LABS: Basophils # (A) 0.12 X 10*3/uL (0.00-0.10); Eosinophils # (A) 0.33 X 10*3/uL (0.04-0.35); Eosinophils % (A) 2.9 %; HGB 11.5 d/dL (12.0-15.0); Lymphocytes # (A) 1.16 X 10*3/uL (0.90-5.00); MCH 32.4 pg (27.0-32.0); MCHC 32.9 d/dL (32.0-37.0); MCV 98.6 FL (80.0-97.0); Mean Platelet Volume 9.8 FL (9.5-12.2); Monocytes # (A) 1.03 X 10*3/uL (0.20-1.00); Monocytes % (A) 8.9 %; NRBC Per 100 WBC 0 X 10*3/uL (0.00-0.01); Neutrophils % (A) 76.9 %; Platelet Count 101 X 10*3/uL (140-440); RBC 3.55 X 10*6/uL (4.10-5.20); RDW 17.2 % (11.5-14.5); WBC 11.57 X 10*3/uL (4.50-10.00)
[2022-11-08 11:37] LABS: ALT 39 U/L (8-44); AST 53 U/L (13-35); Albumin 3.3 d/dL (3.8-4.9); Albumin/Globulin Ratio 1.43 Ratio (1.60-3.17); Alkaline Phosphatase 105 U/L (41-126); Calcium 8.7 mg/dL (8.7-10.3); Carbon Dioxide 19.1 mmol/L (21.6-31.8); Chloride 107 mmol/L (96-109); Globulin 2.3 d/dL (1.6-3.3); Glucose 120 mg/dL (70-110); Potassium 4.4 mmol/L (3.5-5.5); Sodium 137 mmol/L (135-145); Total Bilirubin 2.3 mg/dL (0.3-1.2); Total Protein 5.6 d/dL (6.2-8.2)
--- NOTE | 2022-11-08 12:56 | P.PN ---
Subjective Progress Note Date: 11/08/22 CHIEF COMPLAINT: Chronic appendicitis HISTORY OF PRESENT ILLNESS: Patient is postop day #1 status post exploratory laparotomy, lysis of adhesions extensive, repair of incisional hernia, appendectomy, repair of small bowel enterotomy. Patient reports her pain is controlled. Denies any nausea or vomiting. Denies any flatus. Afebrile. Mildly tachycardic. WBC 11.57 Hgb 11.5 platelets 101 PHYSICAL EXAM: VITAL SIGNS: Reviewed. GENERAL: Well-developed in no acute distress. ABDOMEN: Soft. Nondistended. Prevana wound vac intact. Shadowing at distal portion NEUROLOGIC: Alert and oriented. Cranial nerves II through XII grossly intact. ASSESSMENT: 1. Extensive adhesion, Incisional hernia, Chronic appendicitis PLAN: -Continue clear liquid diet -Continue pain management -Encouraged patient to use incentive spirometer -Patient given a 1 L fluid bolus this morning -Continue IV fluids -DVT prophylaxis Lovenox and SCDs -GI prophylaxis Protonix Physician Import Specialist note has been reviewed by physician. Signing provider agrees with the documented findings, assessment, and plan of care. Objective - Vital Signs Vital signs: Vital Signs Temp 98.0 F 11/08/22 07:58 Pulse 109 H 11/08/22 07:58 Resp 17 11/08/22 07:58 BP 106/72 11/08/22 07:58 Pulse Ox 92 L 11/08/22 07:58 FiO2 Intake & Output 11/07/22 11/08/22 11/08/22 18:59 06:59 18:59 Intake Total 3600 Output Total 300 Balance 3300 Weight 129.1 kg Intake: IV 3600 Output: Urine 0 Stool 0 Estimated Blood Loss 300 Other: # Voids 1 - Labs CBC & Chem 7: 11/08/22 07:16 11/08/22 07:16 Labs: Abnormal Lab Results - Last 24 Hours (Table) 11/07/22 Range/Units 13:52 POC Glucose (mg/dL) 113 H (70-110) mg/dL
--- NOTE | 2022-11-08 14:04 | CDI ---
Documentation Clarification Form Date: 11/08/2022 01:37:44 PM From: Romy Mckinley RN;, CCDS Admit Date: 11/07/2022 12:53:00 PM Patient Name: Chantell Rice Visit Number: [id number] Discharge Date: ATTENTION: The Clinical Documentation Specialists (CDI) and [facility] Coding Staff appreciate your assistance in clarifying documentation. Please respond to the clarification below the line at the bottom and electronically sign. The CDI & [facility] Coding staff will review the response and follow-up if needed. Please note: Queries are made part of the Legal Health Record. If you have any questions, please contact the author of this message via ITS. Dr. Moody Guevara Repair of small bowel enterotomy is documented in the procedure notes on 11/07/2022 and patient had open appendectomy. Additional clarification is requested regarding the relationship, if any, that exists between the diagnosis and the procedure. Patients Admitting Diagnosis: Acute appendicitis Post-Operative Diagnosis: Extensive adhesion, Incisional hernia, chronic appendicitis Procedure performed: Lysis of adhesions extensive. Repair of incisional hernia. Appendectomy Repair of small bowel enterotomy. History/Risk factors: Asthma, Cancer, Hyperlipidemia, Osteoarthritis (OA), Thyroid Disorder Clinical Indicators: 51-year-old female with history of right lower quadrant pain, chronic appendicitis per recent CAT scan. Present for elective procedure. Laparoscopic appendectomy. 11/07 Procedure note: There were extensive adhesions noted throughout the peritoneal cavity. At this point decided to perform an open procedure. The abdomen was desufflated. During the takedown of this adhesion. There was no enterotomy. This was repaired using 3-0 GI silk suture. The serosal surfaces were very oozy. There was a general ooze from the lysis of adhesions. Treatment: Repaired using 3-0 GI silk suture What relationship, if any, exists between the diagnosis Repair of small bowel enterotomy and the procedure? [ ] Repair of small bowel enterotomy is a complication of surgical procedure. [ xx ] Repair of small bowel enterotomy is an expected outcome of the surgical procedure. [ ] Repair of small bowel enterotomy is related to patients co-morbid condition(s) of extensive adhesions between the small bowel and the abdominal wall and small bowel loops. & not a complication of the procedure. [ ] Other please specify ____ [ ] Unable to determine (Template Last Revised: May 2020) MTDD
[2022-11-09] MEDS: KETOROLAC 15 MG/ML 1 ML VIAL IVP SCH ×3 (01:37→14:19)
[2022-11-09] MEDS: LACTATED RINGERS 1,000 ML IV SCH ×5 (05:13→21:34)
[2022-11-09] MEDS: LEVOTHYROXINE 50 MCG TAB PO SCH (05:15)
--- NOTE | 2022-11-09 08:38 | P.PN ---
Subjective Progress Note Date: 11/09/22 Principal diagnosis: Chronic appendicitis This is a 51-year-old female who underwent an exploratory laparotomy with Dr. Guevara on 11/07/22 for lysis of adhesions, repair of incisional hernia, appendectomy, repair of small bowel enterotomy. Patient remains on a clear liquid diet. She reports her pain is well-controlled. Reports she is passing flatus. Objective - Vital Signs Vital signs: Vital Signs Temp 98.2 F 11/09/22 08:00 Pulse 85 11/09/22 08:00 Resp 16 11/09/22 08:00 BP 105/69 11/09/22 08:00 Pulse Ox 95 11/09/22 08:00 FiO2 Intake & Output 11/08/22 11/09/22 11/09/22 18:59 06:59 18:59 Other: # Voids 2 3 # Bowel Movements 0 - Constitutional General appearance: Present: cooperative, no acute distress - EENT Eyes: Present: PERRLA - Neck Neck: Present: normal ROM. Absent: lymphadenopathy, rigidity - Respiratory Respiratory: bilateral: CTA - Cardiovascular Rhythm: regular Heart sounds: normal: S1, S2 - Gastrointestinal General gastrointestinal: Present: decreased bowel sounds, soft. Absent: distended - Integumentary Integumentary: Present: normal, normal turgor - Psychiatric Psychiatric: Present: A&O x's 3, appropriate affect, intact judgment & insight - Labs CBC & Chem 7: 11/08/22 07:16 11/08/22 07:16 Labs: Abnormal Lab Results - Last 24 Hours (Table) 11/08/22 11/08/22 Range/Units 07:16 07:16 WBC 11.57 H (4.50-10.00) X 10*3/uL RBC 3.55 L (4.10-5.20) X 10*6/uL Hgb 11.5 L (12.0-15.0) d/dL Hct 35.0 L (37.2-46.3) % MCV 98.6 H (80.0-97.0) FL MCH 32.4 H (27.0-32.0) pg RDW 17.2 H (11.5-14.5) % Plt Count 101 L (140-440) X 10*3/uL Neutrophils # 8.90 H (1.80-7.70) X 10*3/uL Monocytes # 1.03 H (0.20-1.00) X 10*3/uL Basophils # 0.12 H (0.00-0.10) X 10*3/uL Carbon Dioxide 19.1 L (21.6-31.8) mmol/L Glucose 120 H (70-110) mg/dL Total Bilirubin 2.3 H (0.3-1.2) mg/dL AST 53 H (13-35) U/L Total Protein 5.6 L (6.2-8.2) d/dL Albumin 3.3 L (3.8-4.9) d/dL Albumin/Globulin Ratio 1.43 L (1.60-3.17) Ratio Assessment and Plan (1) Chronic appendicitis Current Visit: Yes Status: Acute Code(s): K36 - OTHER APPENDICITIS SNOMED Code(s): 82429614 (2) Abdominal pain Current Visit: No Status: Acute Priority: High Code(s): R10.9 - UNSPECIFIED ABDOMINAL PAIN SNOMED Code(s): 18758992 (3) Adenocarcinoma of colon metastatic to liver Current Visit: No Status: Acute Priority: High Code(s): C18.9 - MALIGNANT NEOPLASM OF COLON, UNSPECIFIED; C78.7 - SECONDARY MALIG NEOPLASM OF LIVER AND INTRAHEPATIC BILE DUCT SNOMED Code(s): 2072829246 Plan: Continue following surgeon's recommendations. Check CBC and CMP in the morning. Patient seen and evaluated by nurse practitioner, physician in agreement with plan
[2022-11-09] MEDS: PANTOPRAZOLE 40 MG TABLET PO SCH (09:22)
[2022-11-09] MEDS: GABAPENTIN 100 MG CAP PO SCH ×2 (09:22→21:23)
[2022-11-09] MEDS: ENOXAPARIN 40 MG/0.4 ML SYRINGE SQ SCH (09:22)
--- NOTE | 2022-11-09 10:14 | P.PN ---
Subjective Progress Note Date: 11/09/22 CHIEF COMPLAINT: Chronic appendicitis HISTORY OF PRESENT ILLNESS: Patient is postop day #2 status post exploratory laparotomy, lysis of adhesions extensive, repair of incisional hernia, appendectomy, repair of small bowel enterotomy. Patient reports pain as decreased from yesterday. Denies any nausea or vomiting. No flatus. Denies any difficulty urinating. She is getting to the bedside commode. Tachycardia resolved. Labs pending PHYSICAL EXAM: VITAL SIGNS: Reviewed. GENERAL: Well-developed in no acute distress. ABDOMEN: Soft. Nondistended. Prevana wound vac intact. Shadowing at distal portion. Tiny amount of blood noted in canister NEUROLOGIC: Alert and oriented. Cranial nerves II through XII grossly intact. ASSESSMENT: 1. Extensive adhesions, Incisional hernia, Chronic appendicitis PLAN: -Continue clear liquid diet -Continue pain management -Encouraged patient to use incentive spirometer -Continue IV fluids -Consult PT -DVT prophylaxis Lovenox and SCDs -GI prophylaxis Protonix Physician [employer] [address] Justice note has been reviewed by physician. Signing provider agrees with the documented findings, assessment, and plan of care. Objective - Vital Signs Vital signs: Vital Signs Temp 98.2 F 11/09/22 08:00 Pulse 85 11/09/22 08:00 Resp 16 11/09/22 08:00 BP 105/69 11/09/22 08:00 Pulse Ox 95 11/09/22 08:00 FiO2 Intake & Output 11/08/22 11/09/22 11/09/22 18:59 06:59 18:59 Other: # Voids 2 3 # Bowel Movements 0 - Labs CBC & Chem 7: 11/08/22 07:16 11/08/22 07:16 Labs: Abnormal Lab Results - Last 24 Hours (Table) 11/08/22 11/08/22 Range/Units 07:16 07:16 WBC 11.57 H (4.50-10.00) X 10*3/uL RBC 3.55 L (4.10-5.20) X 10*6/uL Hgb 11.5 L (12.0-15.0) d/dL Hct 35.0 L (37.2-46.3) % MCV 98.6 H (80.0-97.0) FL MCH 32.4 H (27.0-32.0) pg RDW 17.2 H (11.5-14.5) % Plt Count 101 L (140-440) X 10*3/uL Neutrophils # 8.90 H (1.80-7.70) X 10*3/uL Monocytes # 1.03 H (0.20-1.00) X 10*3/uL Basophils # 0.12 H (0.00-0.10) X 10*3/uL Carbon Dioxide 19.1 L (21.6-31.8) mmol/L Glucose 120 H (70-110) mg/dL Total Bilirubin 2.3 H (0.3-1.2) mg/dL AST 53 H (13-35) U/L Total Protein 5.6 L (6.2-8.2) d/dL Albumin 3.3 L (3.8-4.9) d/dL Albumin/Globulin Ratio 1.43 L (1.60-3.17) Ratio
[2022-11-09 11:54] LABS: ALT 29 U/L (8-44); AST 49 U/L (13-35); Albumin/Globulin Ratio 1.36 Ratio (1.60-3.17); Alkaline Phosphatase 99 U/L (41-126); Blood Urea Nitrogen 14.7 mg/dL (9.0-27.0); Calcium 8.4 mg/dL (8.7-10.3); Carbon Dioxide 21.5 mmol/L (21.6-31.8); Chloride 107 mmol/L (96-109); Globulin 2.2 d/dL (1.6-3.3); Glucose 103 mg/dL (70-110); Sodium 137 mmol/L (135-145); Total Bilirubin 2.1 mg/dL (0.3-1.2); Total Protein 5.2 d/dL (6.2-8.2)
--- NOTE | 2022-11-09 12:04 | CDI ---
Documentation Clarification Form Date: 11/09/2022 11:45:49 AM From: Romy Mckinley RN, CCDS Admit Date: 11/07/2022 12:53:00 PM Patient Name: Chantell Rice Visit Number: [id number] Discharge Date: ATTENTION: The Clinical Documentation Specialists (CDI) and [facility] Coding Staff appreciate your assistance in clarifying documentation. Please respond to the clarification below the line at the bottom and electronically sign. The CDI & [facility] Coding staff will review the response and follow-up if needed. Please note: Queries are made part of the Legal Health Record. If you have any questions, please contact the author of this message via ITS. Dr. Kenney Kwon Patient has a documented BMI of 44.6. Additional clarification is requested. History/Risk Factors: Asthma, Adenocarcinoma of colon metastatic to liver, Hyperlipidemia, Thyroid Disorder Clinical Indicators: 51-year-old female who's had complete the right lower quadrant pain. Her recent CAT scan suspicious for appendicitis. She presents for elective appendectomy. Her general appearance: obese Patients weight is 129.1 kg Patients height is 5 ft 7 in Calculated BMI is 44.6 kg/m2 11/08 Labs: WBC 11.57 HGB 11.5 BUN 19.0 Cr 1.0 Treatments: Clear liquid diet (advance per surgery) Monitor I/O Please clarify if patients BMI indicates an additional diagnosis: [ ] Obesity, Class 1 [ ] Obesity, Class 2 [x ] Morbid (Extreme) (severe) obesity [ ] No additional diagnosis/not clinically significant [ ] Other, please specify ____ [ ] Unable to determine Reference: NIH Classification for BMI Overweight BMI 2529.9 Obesity (Class 1) BMI 3034.9 Obesity (Class 2) BMI 3539.9 Morbid obesity (Class 3/Extreme/severe) BMI =40 (Template Last Revised: July 2020) MTDD
[2022-11-09 12:41] LABS: HCT 28.9 % (37.2-46.3); HGB 10.1 d/dL (12.0-15.0); Immature Platelet Fraction 4.9 % (1.1-6.1); MCH 33.9 pg (27.0-32.0); MCHC 34.9 d/dL (32.0-37.0); Mean Platelet Volume 10.2 FL (9.5-12.2); NRBC Per 100 WBC 0 X 10*3/uL (0.00-0.01); Platelet Count 64 X 10*3/uL (140-440); RBC 2.98 X 10*6/uL (4.10-5.20); RDW 17.4 % (11.5-14.5); WBC 7.59 X 10*3/uL (4.50-10.00)
[2022-11-09] MEDS: LEVOFLOXACIN 500MG-D5W PMX 500 MG in DEXTROSE/WATER 1 100ML.BAG IVPB SCH (14:42)
[2022-11-09] MEDS: ACETAMINOPHEN TAB 500 MG TAB PO PRN (15:12)
[2022-11-09] MEDS: HYDROmorphone 0.5 MG/0.5 ML SYRINGE IVP PRN (21:24)
[2022-11-10] MEDS: LACTATED RINGERS 1,000 ML IV SCH ×2 (04:41→10:17)
[2022-11-10] MEDS: LEVOTHYROXINE 50 MCG TAB PO SCH (06:30)
[2022-11-10] MEDS ORDERED: HYDROcodone/APAP 5-325MG 1 EACH TAB PO PRN (09:51)
[2022-11-10] MEDS: PANTOPRAZOLE 40 MG TABLET PO SCH (10:10)
[2022-11-10] MEDS: GABAPENTIN 100 MG CAP PO SCH ×2 (10:11→20:40)
[2022-11-10] MEDS: ENOXAPARIN 40 MG/0.4 ML SYRINGE SQ SCH (10:11)
[2022-11-10] MEDS: ACETAMINOPHEN TAB 500 MG TAB PO PRN ×2 (10:12→17:45)
--- NOTE | 2022-11-10 10:43 | P.PN ---
Subjective Progress Note Date: 11/10/22 CHIEF COMPLAINT: Chronic appendicitis HISTORY OF PRESENT ILLNESS: Patient is postop day #3 status post exploratory laparotomy, lysis of adhesions extensive, repair of incisional hernia, appendectomy, repair of small bowel enterotomy. Patient having flatus. Her pain is controlled. She is asking for oatmeal to eat. Afebrile. WBC 7.59 yesterday. As for today pending Patient seen with Dr. Laws who is covering for Dr. Guevara PHYSICAL EXAM: VITAL SIGNS: Reviewed. GENERAL: Well-developed in no acute distress. ABDOMEN: Soft. Nondistended. Prevana wound vac intact. Shadowing at distal po rtion. NEUROLOGIC: Alert and oriented. Cranial nerves II through XII grossly intact. ASSESSMENT: 1. 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 Signing provider agrees with the documented findings, assessment, and plan of care. Objective - Vital Signs Vital signs: Vital Signs Temp 99.6 F 11/10/22 07:32 Pulse 95 11/10/22 07:32 Resp 17 11/10/22 07:32 BP 110/72 11/10/22 07:32 Pulse Ox 97 11/10/22 07:32 FiO2 Intake & Output 11/09/22 11/10/22 11/10/22 18:59 06:59 18:59 Other: Voiding Method Toilet Bedside Commode Bedside Commode # Voids 3 - Labs CBC & Chem 7: 11/09/22 07:36 11/09/22 07:36 Labs: Abnormal Lab Results - Last 24 Hours (Table) 11/09/22 11/09/22 Range/Units 07:36 07:36 RBC 2.98 L (4.10-5.20) X 10*6/uL Hgb 10.1 L (12.0-15.0) d/dL Hct 28.9 L (37.2-46.3) % MCH 33.9 H (27.0-32.0) pg RDW 17.4 H (11.5-14.5) % Plt Count 64 L (140-440) X 10*3/uL Carbon Dioxide 21.5 L (21.6-31.8) mmol/L BUN/Creatinine Ratio 21.00 H (12.00-20.00) Ratio Calcium 8.4 L (8.7-10.3) mg/dL Total Bilirubin 2.1 H (0.3-1.2) mg/dL AST 49 H (13-35) U/L Total Protein 5.2 L (6.2-8.2) d/dL Albumin 3.0 L (3.8-4.9) d/dL Albumin/Globulin Ratio 1.36 L (1.60-3.17) Ratio
[2022-11-10 11:05] LABS: ALT 26 U/L (8-44); AST 41 U/L (13-35); Alkaline Phosphatase 111 U/L (41-126); BUN/Creat Ratio 16.29 Ratio (12.00-20.00); Blood Urea Nitrogen 11.4 mg/dL (9.0-27.0); Calcium 8.3 mg/dL (8.7-10.3); Carbon Dioxide 22.8 mmol/L (21.6-31.8); Chloride 105 mmol/L (96-109); Globulin 2.3 d/dL (1.6-3.3); Glucose 77 mg/dL (70-110); Potassium 3.9 mmol/L (3.5-5.5); Sodium 137 mmol/L (135-145); Total Protein 5.3 d/dL (6.2-8.2)
[2022-11-10 12:02] LABS: HCT 28.4 % (37.2-46.3); HGB 9.5 d/dL (12.0-15.0); Immature Platelet Fraction 3.6 % (1.1-6.1); MCHC 33.5 d/dL (32.0-37.0); MCV 98.6 FL (80.0-97.0); Mean Platelet Volume 10.1 FL (9.5-12.2); NRBC Per 100 WBC 0 X 10*3/uL (0.00-0.01); Platelet Count 53 X 10*3/uL (140-440); RBC 2.88 X 10*6/uL (4.10-5.20); WBC 2.84 X 10*3/uL (4.50-10.00)
--- NOTE | 2022-11-10 13:11 | P.PN ---
Subjective Progress Note Date: 11/10/22 CHIEF COMPLAINT: Chronic appendicitis Patient is postop day #3 status post exploratory laparotomy, lysis of adhesions extensive, repair of incisional hernia, appendectomy, repair of small bowel enterotomy. Patient seen by internal medicine, remains hemodynamically stable, continue management per surgery blood work reviewed. REVIEW OF SYSTEMS: CONSTITUTIONAL: No fever, no malaise, no fatigue. HEENT: No recent visual problems or hearing problems. Denied any sore throat. CARDIOVASCULAR: No chest pain, orthopnea, PND, no palpitations, no syncope. PULMONARY: No shortness of breath, no cough, no hemoptysis. GASTROINTESTINAL: No diarrhea, no nausea, no vomiting, no abdominal pain. NEUROLOGICAL: No headaches, no weakness, no numbness. HEMATOLOGICAL: Denies any bleeding or petechiae. GENITOURINARY: Denies any burning micturition, frequency, or urgency. MUSCULOSKELETAL/RHEUMATOLOGICAL: Denies any joint pain, swelling, or any muscle pain. ENDOCRINE: Denies any polyuria or polydipsia. PHYSICAL EXAMINATION: GENERAL: The patient is alert and oriented x3, not in any acute distress. Well developed, well nourished. HEENT: Pupils are round and equally reacting to light. EOMI. No scleral icterus. No conjunctival pallor. Normocephalic, atraumatic. No pharyngeal erythema. No thyromegaly. CARDIOVASCULAR: S1 and S2 present. No murmurs, rubs, or gallops. PULMONARY: Chest is clear to auscultation, no wheezing or crackles. ABDOMEN: Soft, nontender, nondistended, wound VAC in place MUSCULOSKELETAL: No joint swelling or deformity. EXTREMITIES: No cyanosis, clubbing, or pedal edema. NEUROLOGICAL: Gross neurological examination did not reveal any focal deficits. SKIN: No rashes. Objective - Vital Signs Vital signs: Vital Signs Temp 99.6 F 11/10/22 07:32 Pulse 95 11/10/22 07:32 Resp 17 11/10/22 07:32 BP 110/72 11/10/22 07:32 Pulse Ox 97 11/10/22 07:32 FiO2 Intake & Output 11/09/22 11/10/22 11/10/22 18:59 06:59 18:59 Other: Voiding Method Toilet Bedside Commode Bedside Commode # Voids 3 3 - Labs CBC & Chem 7: 11/10/22 07:19 11/10/22 07:19 Labs: Abnormal Lab Results - Last 24 Hours (Table) 11/10/22 11/10/22 Range/Units 07:19 07:19 WBC 2.84 L (4.50-10.00) X 10*3/uL RBC 2.88 L (4.10-5.20) X 10*6/uL Hgb 9.5 L (12.0-15.0) d/dL Hct 28.4 L (37.2-46.3) % MCV 98.6 H (80.0-97.0) FL MCH 33.0 H (27.0-32.0) pg RDW 17.0 H (11.5-14.5) % Plt Count 53 L (140-440) X 10*3/uL Calcium 8.3 L (8.7-10.3) mg/dL Total Bilirubin 2.0 H (0.3-1.2) mg/dL AST 41 H (13-35) U/L Total Protein 5.3 L (6.2-8.2) d/dL Albumin 3.0 L (3.8-4.9) d/dL Albumin/Globulin Ratio 1.30 L (1.60-3.17) Ratio Assessment and Plan Assessment: Assessment and plan * Status post chronic appendicitis, exploratory Department lysis of adhesions * History of colon carcinoma * History of asthma * Hyperlipidemia * Hypothyroid * Continue postoperative management per general surgery team. Glossitis tolerated, postoperative wound management per surgery * Continue pain control, Zofran as needed for nausea, oral Protonix * On Lovenox for DVT prophylaxis, continue to monitor CBC * Postoperative antibiotic management surgical team * Continue patient on Synthroid for history of hypothyroid
[2022-11-10] MEDS: LEVOFLOXACIN 500MG-D5W PMX 500 MG in DEXTROSE/WATER 1 100ML.BAG IVPB SCH (17:21)
[2022-11-11] MEDS: LEVOTHYROXINE 50 MCG TAB PO SCH (05:37)
[2022-11-11] MEDS: ACETAMINOPHEN TAB 500 MG TAB PO PRN (05:51)
[2022-11-11 08:13] LABS: African American GFR (CKD) >90 (>60 ml/min/1.73 sqM); Anion Gap 0 mmol/L; Blood Urea Nitrogen 8 mg/dL (7-17); Calcium 8.1 mg/dL (8.4-10.2); Carbon Dioxide 26 mmol/L (22-30); Chloride 110 mmol/L (98-107); Glucose 88 mg/dL (74-99); Magnesium 1.8 mg/dL (1.6-2.3); Non-African American GFR(CKD) >90 (>60 ml/min/1.73 sqM); Potassium 3.8 mmol/L (3.5-5.1); Sodium 136 mmol/L (137-145)
[2022-11-11] MEDS: ENOXAPARIN 40 MG/0.4 ML SYRINGE SQ SCH (08:24)
[2022-11-11] MEDS: PANTOPRAZOLE 40 MG TABLET PO SCH (08:24)
[2022-11-11] MEDS: GABAPENTIN 100 MG CAP PO SCH ×2 (08:25→22:30)
[2022-11-11] MEDS: LACTATED RINGERS 1,000 ML IV SCH (08:25)
--- NOTE | 2022-11-11 12:40 | P.PN ---
Subjective Progress Note Date: 11/11/22 CHIEF COMPLAINT: Chronic appendicitis Patient is postop day #4 status post exploratory laparotomy, lysis of adhesions extensive, repair of incisional hernia, appendectomy, repair of small bowel enterotomy. Patient seen by internal medicine, remains hemodynamically stable, continue management per surgery blood work reviewed. 11/11: Patient is postoperative day 4, electrolytes reviewed magnesium replaced REVIEW OF SYSTEMS: CONSTITUTIONAL: No fever, no malaise, no fatigue. HEENT: No recent visual problems or hearing problems. Denied any sore throat. CARDIOVASCULAR: No chest pain, orthopnea, PND, no palpitations, no syncope. PULMONARY: No shortness of breath, no cough, no hemoptysis. GASTROINTESTINAL: No diarrhea, no nausea, no vomiting, no abdominal pain. NEUROLOGICAL: No headaches, no weakness, no numbness. HEMATOLOGICAL: Denies any bleeding or petechiae. GENITOURINARY: Denies any burning micturition, frequency, or urgency. MUSCULOSKELETAL/RHEUMATOLOGICAL: Denies any joint pain, swelling, or any muscle pain. ENDOCRINE: Denies any polyuria or polydipsia. PHYSICAL EXAMINATION: GENERAL: The patient is alert and oriented x3, not in any acute distress. Well developed, well nourished. HEENT: Pupils are round and equally reacting to light. EOMI. No scleral icterus. No conjunctival pallor. Normocephalic, atraumatic. No pharyngeal erythema. No thyromegaly. CARDIOVASCULAR: S1 and S2 present. No murmurs, rubs, or gallops. PULMONARY: Chest is clear to auscultation, no wheezing or crackles. ABDOMEN: Soft, nontender, nondistended, wound VAC in place MUSCULOSKELETAL: No joint swelling or deformity. EXTREMITIES: No cyanosis, clubbing, or pedal edema. NEUROLOGICAL: Gross neurological examination did not reveal any focal deficits. SKIN: No rashes. Objective - Vital Signs Vital signs: Vital Signs Temp 98.4 F 11/11/22 07:15 Pulse 72 11/11/22 07:15 Resp 17 11/11/22 07:15 BP 134/83 11/11/22 07:15 Pulse Ox 97 11/11/22 08:37 FiO2 Intake & Output 11/10/22 11/11/22 11/11/22 18:59 06:59 18:59 Other: Voiding Method Bedside Commode Toilet Bedside Commode # Voids 3 2 - Labs CBC & Chem 7: 11/10/22 07:19 11/11/22 07:09 Labs: Abnormal Lab Results - Last 24 Hours (Table) 11/11/22 Range/Units 07:09 Sodium 136 L (137-145) mmol/L Chloride 110 H (98-107) mmol/L Calcium 8.1 L (8.4-10.2) mg/dL Assessment and Plan Assessment: Assessment and plan * Status post chronic appendicitis, exploratory Department lysis of adhesions POD 4 * History of colon carcinoma * History of asthma * Hyperlipidemia * Hypothyroid * Continue postoperative management per general surgery team. Glossitis tolerated, postoperative wound management per surgery * Continue pain control, Zofran as needed for nausea, oral Protonix * On Lovenox for DVT prophylaxis, continue to monitor CBC * Postoperative antibiotic management surgical team * Continue patient on Synthroid for history of hypothyroid
[2022-11-11 14:39] VITALS: RESP 18
[2022-11-11] MEDS: MAGNESIUM SULFATE-D5W PMX 1 GM in DEXTROSE/WATER 1 100ML.BAG IVPB SCH ×2 (14:56→17:56)
[2022-11-11] MEDS: LEVOFLOXACIN 500MG-D5W PMX 500 MG in DEXTROSE/WATER 1 100ML.BAG IVPB SCH (14:56)
--- NOTE | 2022-11-11 15:48 | P.PN ---
Subjective Progress Note Date: 11/11/22 Tolerated low fiber diet. Had bowel movement. Wound Vac malfunction. Change wound vac to optifoam. Disposition in 24 hrs. Objective - Vital Signs Vital signs: Vital Signs Temp 98.8 F 11/11/22 14:00 Pulse 83 11/11/22 14:00 Resp 18 11/11/22 14:00 BP 131/83 11/11/22 14:00 Pulse Ox 99 11/11/22 14:00 FiO2 Intake & Output 11/10/22 11/11/22 11/11/22 18:59 06:59 18:59 Other: Voiding Method Bedside Commode Toilet Bedside Commode # Voids 3 2 - Labs CBC & Chem 7: 11/10/22 07:19 11/11/22 07:09 Labs: Abnormal Lab Results - Last 24 Hours (Table) 11/11/22 Range/Units 07:09 Sodium 136 L (137-145) mmol/L Chloride 110 H (98-107) mmol/L Calcium 8.1 L (8.4-10.2) mg/dL
[2022-11-12] MEDS: LEVOTHYROXINE 50 MCG TAB PO SCH (05:46)
[2022-11-12] MEDS: HYDROmorphone 0.5 MG/0.5 ML SYRINGE IVP PRN (05:46)
[2022-11-12 08:23] LABS: African American GFR (CKD) >90 (>60 ml/min/1.73 sqM); Anion Gap 4 mmol/L; Blood Urea Nitrogen 5 mg/dL (7-17); Calcium 8.1 mg/dL (8.4-10.2); Carbon Dioxide 23 mmol/L (22-30); Chloride 109 mmol/L (98-107); Glucose 92 mg/dL (74-99); Non-African American GFR(CKD) >90 (>60 ml/min/1.73 sqM); Potassium 3.6 mmol/L (3.5-5.1); Sodium 136 mmol/L (137-145)
[2022-11-12 08:24] LABS: Anisocytosis Slight; HCT 30.6 % (34.0-46.0); MCH 33.8 pg (25.0-35.0); MCHC 34.2 g/dL (31.0-37.0); MCV 98.7 fL (80.0-100.0); Macrocytosis Slight; Mean Platelet Volume 7.5; Poikilocytosis Slight; RDW 16.5 % (11.5-15.5); WBC 3.6 k/uL (3.8-10.6)
[2022-11-12 08:29] LABS: Platelet Count 77 k/uL (150-450)
[2022-11-12 08:30] LABS: HGB 10.5 gm/dL (11.4-16.0)
[2022-11-12] MEDS: PANTOPRAZOLE 40 MG TABLET PO SCH (08:42)
[2022-11-12] MEDS: GABAPENTIN 100 MG CAP PO SCH (08:42)
[2022-11-12] MEDS: ENOXAPARIN 40 MG/0.4 ML SYRINGE SQ SCH (08:43)
[2022-11-12 10:45] VITALS: BP 109/71; PULSE 83; TEMP 98.1
--- NOTE | 2022-11-12 11:49 | P.PN ---
Subjective Progress Note Date: 11/12/22 CHIEF COMPLAINT: Chronic appendicitis Patient is postop day #4 status post exploratory laparotomy, lysis of adhesions extensive, repair of incisional hernia, appendectomy, repair of small bowel enterotomy. Patient seen by internal medicine, remains hemodynamically stable, continue management per surgery blood work reviewed. 11/11: Patient is postoperative day 4, electrolytes reviewed magnesium replaced 11/12: Patient seen and evaluated bedside, postoperative day 5. Wound VAC removed, abdominal pain improved REVIEW OF SYSTEMS: CONSTITUTIONAL: No fever, no malaise, no fatigue. HEENT: No recent visual problems or hearing problems. Denied any sore throat. CARDIOVASCULAR: No chest pain, orthopnea, PND, no palpitations, no syncope. PULMONARY: No shortness of breath, no cough, no hemoptysis. GASTROINTESTINAL: No diarrhea, no nausea, no vomiting, no abdominal pain. NEUROLOGICAL: No headaches, no weakness, no numbness. HEMATOLOGICAL: Denies any bleeding or petechiae. GENITOURINARY: Denies any burning micturition, frequency, or urgency. MUSCULOSKELETAL/RHEUMATOLOGICAL: Denies any joint pain, swelling, or any muscle pain. ENDOCRINE: Denies any polyuria or polydipsia. PHYSICAL EXAMINATION: GENERAL: The patient is alert and oriented x3, not in any acute distress. Well developed, well nourished. HEENT: Pupils are round and equally reacting to light. EOMI. No scleral icterus. No conjunctival pallor. Normocephalic, atraumatic. No pharyngeal erythema. No thyromegaly. CARDIOVASCULAR: S1 and S2 present. No murmurs, rubs, or gallops. PULMONARY: Chest is clear to auscultation, no wheezing or crackles. ABDOMEN: Soft, nontender, nondistended, wound VAC removed, abdominal incision bandage MUSCULOSKELETAL: No joint swelling or deformity. EXTREMITIES: No cyanosis, clubbing, or pedal edema. NEUROLOGICAL: Gross neurological examination did not reveal any focal deficits. SKIN: No rashes. Objective - Vital Signs Vital signs: Vital Signs Temp 98.1 F 11/11/22 19:25 Pulse 84 11/11/22 19:25 Resp 18 11/11/22 19:25 BP 128/71 11/11/22 19:25 Pulse Ox 100 11/11/22 19:25 FiO2 Intake & Output 11/11/22 11/11/2223 06:59 18:59 06:59 Other: Voiding Method Toilet Bedside Commode # Voids 2 3 - Labs CBC & Chem 7: 11/12/22 06:59 11/12/22 06:59 Labs: Abnormal Lab Results - Last 24 Hours (Table) 11/11/22 Range/Units 07:09 Sodium 136 L (137-145) mmol/L Chloride 110 H (98-107) mmol/L Calcium 8.1 L (8.4-10.2) mg/dL Assessment and Plan Assessment: Assessment and plan * Status post chronic appendicitis, exploratory Department lysis of adhesions POD 5 * History of colon carcinoma * History of asthma * Hyperlipidemia * Hypothyroid * Continue postoperative management per general surgery team. * Continue pain control, Zofran as needed for nausea, oral Protonix * On Lovenox for DVT prophylaxis, continue to monitor CBC * Postoperative antibiotic management surgical team * Continue patient on Synthroid for history of hypothyroid
[2022-11-12] MEDS: LACTATED RINGERS 1,000 ML IV SCH (12:40)
--- NOTE | 2022-11-12 12:43 | P.DS ---
Providers Date of admission: 11/07/22 12:53 Expected date of discharge: 11/12/22 Attending physician: Moody Guevara Consults: 11/07/22 12:45 Consult Physician Routine Consulting Provider: Kenney Kwon Consult Reason/Comments: Medical management Do you want consulting provider notified?: Yes Primary care physician: Kenney Kwon Hospital Course: Clinically doing well. Labs reviewed demonstrates resolved leukocytosis. She is tolerating diet. Stable for discharge. No signs of infection along incision. Keep dressing. Okay to shower. Patient Condition at Discharge: Stable Plan - Discharge Summary Discharge Rx Participant: Yes New Discharge Prescriptions: New HYDROcodone/APAP 5-325MG [[place] 5-325] 1 tab PO Q6HR PRN 3 Days #12 tab PRN Reason: Pain No Action Pantoprazole [Protonix] 40 mg PO QAM Levothyroxine Sodium [Synthroid] 50 mcg PO QAM Albuterol Inhaler [Ventolin Hfa Inhaler] 1 - 2 puff INHALATION RT-Q6H PRN PRN Reason: Shortness Of Breath Gabapentin [Neurontin] 100 mg PO HS Docusate [Colace] 100 - 200 mg PO BID Gabapentin [Neurontin] 200 mg PO QAM Doxycycline [Vibramycin] 100 mg PO BID Capecitabine 500mg 2,500 mg PO DIRECTED Acetaminophen [Tylenol Extra Strength] 1,000 mg PO DAILY PRN PRN Reason: Pain Discharge Medication List Albuterol Inhaler [Ventolin Hfa Inhaler] 1 - 2 puff INHALATION RT-Q6H PRN 04/13/21 [History] Gabapentin [Neurontin] 200 mg PO QAM 04/13/21 [History] Levothyroxine Sodium [Synthroid] 50 mcg PO QAM 04/13/21 [History] Pantoprazole [Protonix] 40 mg PO QAM 04/13/21 [History] Doxycycline [Vibramycin] 100 mg PO BID 11/23/21 [History] Capecitabine 500mg 2,500 mg PO DIRECTED 04/21/22 [History] Docusate [Colace] 100 - 200 mg PO BID 04/21/22 [History] Gabapentin [Neurontin] 100 mg PO HS 04/21/22 [History] Acetaminophen [Tylenol Extra Strength] 1,000 mg PO DAILY PRN 11/02/22 [History] HYDROcodone/APAP 5-325MG [[place] 5-325] 1 tab PO Q6HR PRN 3 Days #12 tab 11/10/22 [Rx] Follow up Appointment(s)/Referral(s): Moody Guevara MD [STAFF PHYSICIAN] - 11/14/22 2:00 pm Activity/Diet/Wound Care/Special Instructions: No driving while taking [place] No lifting over 10 pounds Shower daily. No soaking or tub baths for 2 weeks Very light activity until you are reevaluated at your follow up appointment with your surgeon Discharge Disposition: HOME SELF-CARE
== END 2022-11-12 15:22 | disposition home or self-care (01) | DRG 330 ==
LOC: OR 08:50 → EDSTATUS 10:00 → 4SSUR 12:53
PROVIDERS: ADMIT Surgery; ATTEND Surgery
PROC: 0DNW0ZZ Release Peritoneum, Open Approach (ICD-10-PCS; principal; 2022-11-07 10:00)
PROC: 0DTJ0ZZ Resection of Appendix, Open Approach (ICD-10-PCS; principal; 2022-11-07 10:00)
PROC: 0DQ80ZZ Repair Small Intestine, Open Approach (ICD-10-PCS; principal; 2022-11-07 10:00)
PROC: 0WQF0ZZ Repair Abdominal Wall, Open Approach (ICD-10-PCS; principal; 2022-11-07 10:00)
DX: K35.80 Unspecified acute appendicitis (principal); C78.7 Secondary malignant neoplasm of liver and intrahepatic bile duct; K43.0 Incisional hernia with obstruction, without gangrene; Z68.41 Body mass index [BMI] 40.0-44.9, adult; K66.0 Peritoneal adhesions (postprocedural) (postinfection); Z86.16 Personal history of COVID-19; Z87.891 Personal history of nicotine dependence; E78.5 Hyperlipidemia, unspecified; E66.01 Morbid (severe) obesity due to excess calories; E03.9 Hypothyroidism, unspecified; J45.909 Unspecified asthma, uncomplicated; Z85.038 Personal history of other malignant neoplasm of large intestine; Z79.890 Hormone replacement therapy
CPT/HCPCS: 80048; 80053; 81025; 83735; 85025; 85027; 88304; 94760

== ENCOUNTER → 2024-04-03 | Outpatient (CLI) | payer BC ==
--- NOTE | 2024-04-04 23:03 | PE ---
EXAMINATION TYPE: PET CT fusion skull to thigh DATE OF EXAM: 04/03/2024 COMPARISON: 12/24/2023 Prior PET/CT: 07/15/2021 CLINICAL INDICATION: Female, 53 years old with history of C18.6 colon ca, TECHNIQUE: Following the intravenous administration of 11.37 mCi of F-18 FDG, whole body images are performed from the skull base to the midthigh. Images are reviewed on the computer in the coronal, a xial, and sagittal planes. Reconstructed rotating images are created on independent workstation and reviewed on the computer. A localization and attenuation correction CT is performed in conjunction with the PET scan. DLP: [id number] mGycm SCAN: Subsequent Blood glucose: 100 mg/dL Average Mediastinum SUV: 3.12 Average Liver SUV: 4.07 FINDINGS: NECK: No abnormal uptake THORAX: No abnormal uptake ABDOMEN: There is a heterogenous area within the lateral mid right liver with an intensity of 9.35 saeed spicious for metastatic disease. PELVIS: No abnormal uptake OSSEOUS STRUCTURES: No abnormal uptake LOCALIZATION CT: No suspicious localization CT findings. The hepatic lesion lateral right lobe liver is not easily identifiable. COMPARISON: Hypodensity identified on the comparison CT could correlate with the abnormal PET scan. O f this area is not as clearly identified on the localization CT. IMPRESSION: 1. Suspicious uptake within the lateral right mid liver can be compatible with metastatic disease. 2. There is been significant improvement of the hepatic lesions with resolution of the majority of th e lesions previously present. [facility], , 04/04/2024 11:01 PM
== END | disposition home or self-care (01) ==
LOC: RADPETMAIN 08:26
PROVIDERS: ATTEND Internal Medicine Hematology & Oncology
DX: C18.6 Malignant neoplasm of descending colon (principal); K76.9 Liver disease, unspecified
CPT/HCPCS: 78815; A9552

== ENCOUNTER → 2024-07-11 | Outpatient (CLI) | payer MEDICARE ==
--- NOTE | 2024-07-11 16:24 | PE ---
EXAMINATION TYPE: PET CT fusion skull to thigh DATE OF EXAM: 07/11/2024 COMPARISON: CT chest 12/24/2023, CT chest abdomen and pelvis 10/12/2022 Prior PET/CT: 04/03/2024 CLINICAL INDICATION: Female, 53 years old with history of C18.6 COLON CANCER, TECHNIQUE: Following the intravenous administration of 11.75 mCi of F-18 FDG, whole body images are performed PET CT fusion skull to thigh. Images are reviewed on the computer in the coronal, axial, a nd sagittal planes. Reconstructed rotating images are created on independent workstation and reviewe d on the computer. A localization and attenuation correction CT is performed in conjunction with e PET scan. DLP: 2137.9 mGycm SCAN: Subsequent Blood glucose: 107 mg/dL Average Mediastinum SUV: 2.63 Average Liver SUV: 3.82 FINDINGS: NECK: No abnormal uptake THORAX: No abnormal uptake ABDOMEN: There is some mild uptake lateral right lobe liver, example image 131, SUV 7.02. This is sig nificantly improved from the comparison study. Metastasis however likely remains present. PELVIS: There is increased signal within the rectal anal region with an SUV of 7.05. OSSEOUS STRUCTURES: No abnormal uptake LOCALIZATION CT: No significant interval change COMPARISON: There is significant improvement of the uptake within the lateral right lobe liver with o nly minimal residual remaining. Previous additional areas of abnormal uptake not identified within e liver. IMPRESSION: 1. Persistent uptake within the lateral right lobe liver suspicious for metastasis. Volume and SUV ho wever are diminished over the interval compatible with positive treatment response. 2. There are scattered punctate areas in the rectoanal region. Neoplasm is not excluded this level. C ontamination could be within the differential. Direct visualization recommended. [facility], , 07/11/2024 4:22 PM
== END | disposition home or self-care (01) ==
LOC: RADPETMAIN 13:07
PROVIDERS: ATTEND Internal Medicine Hematology & Oncology
DX: C18.6 Malignant neoplasm of descending colon (principal); K76.89 Other specified diseases of liver
CPT/HCPCS: 78815; A9552